=== PATIENT | female | born 1950 | race Hispanic/Latino ===

== ENCOUNTER → 2019-08-23 | Day surgery (SDC) | payer MEDICARE, OTHER ==
[2019-08-16 13:33] LABS: BASOPHILS # (AUTO) 0.1 (0.0-0.1); BASOPHILS % 1.1 % (0.0-1.0); EOSINOPHILS # (AUTO) 0.3 (0.0-0.4); EOSINOPHILS % 4.3 % (0.0-6.0); HEMATOCRIT 36.7 % (34.2-44.1); LYMPHOCYTES # (AUTO) 1.4 (1.0-3.2); LYMPHOCYTES % 22.5 % (18.0-39.1); MEAN CORPUSCULAR HEMOGLOBIN 31.6 pg (28-32); MEAN CORPUSCULAR HGB CONC 32.7 g/dL (31-35); MEAN CORPUSCULAR VOLUME 96.6 fL (81-99); MONOCYTES # (AUTO) 0.5 (0.2-0.8); MONOCYTES % 8.3 % (4.4-11.3); NEUTROPHILS % 63.3 % (38.7-80.0); PLATELET COUNT 294 x10e3/uL (140-360); RED CELL DISTRIBUTION WIDTH 13.2 % (11.7-14.4)
[2019-08-16 14:00] LABS: ALBUMIN 3.7 g/dL (3.5-5.0); ALBUMIN/GLOBULIN RATIO 0.9 (0.8-2.0); ANION GAP 14.1 mmol/L (8-16); CALCIUM 9.8 mg/dL (8.4-10.2); CREATININE, SERUM 1.9 mg/dL (0.57-1.11); POTASSIUM 5.1 mmol/L (3.5-5.1)
[2019-08-23] VITALS (9 sets, daily range): BP systolic 140–170; BP diastolic 66–99
[~2019-08-23] VITALS: Ht 165.1 cm; Wt 59.9 kg
[~2019-08-23] MED LIST: ALPRAZOLAM 0.5 MG TAB ONE; ASPIRIN 325 MG TAB ONE; ASPIRIN81 MG; CLOPIDOGREL75 MG PO; DIPHENHYDRAMINE HCL 25 MG CAP ONE; FENTANYL CITRATE/PF 100MCG/2 ML INJ ONE; HEPARIN SOD/SOD CHLORIDE 2,000 ML ONE; HUMALOG100 UNIT/1 SC; IOPAMIDOL 300MG/ML 100 ML INFUS..BTL IV ONE; LEVEMIR100 UNIT/1 SC; LIDOCAINE HCL 2% LOCAL 20 ML VIAL ONE; METOPROLOL SUCC25 MG; MIDAZOLAM HCL 2 MG/2 ML VIAL ONE; PRASUGREL 10 MG TAB ONE; SODIUM CHLORIDE 0.9% 1000ML 1,000 ML ONE; VERAPAMIL HCL 2.5 MG/ML 2 ML VIAL ONE
--- OUTSIDE RECORDS SUMMARY | 2019-08-23 09:02 | XMS REPORT | Summary of Care ---
Author Author YOMAIRA Manuel, PASTORA Organization Unknown Address Unknown Phone Unavailable Care Team Providers Care Therapeutic Program Worker Name Role Phone PASTORA BURNETTE M.D. Unavailable Unavailable TERESO ORNELAS MD, DHARA Unavailable Unavailable YOMAIRA BLACKWELL AR, PASTORA ALEXANDER Unavailable Unavailable Unavailable Unavailable Functional Status Name Dates Details Functional status health issues are not documented Status: Name Dates Details Cognitive status health issues are not documented Status: Problems Name Dates Details Extremity pain (729.5, M79.609) Status: Active Ankle injury (959.7, S99.919A) Status: Active Closed trimalleolar fracture of right ankle, initial encounter (824.6, S82.851A) Status: Active Post-traumatic osteoarthritis of right ankle (715.27, M19.171) Status: Active Contusion of left knee, initial encounter (924.11, S80.02XA) Status: Active Charcot's arthropathy (349.9, M14.60) Status: Active Charcot ankle, right (094.0, M14.671) Status: Active Fatigue (780.79, R53.83) Status: Active Vitamin D insufficiency (268.9, E55.9) Status: Active Vitamin B12 deficiency (266.2, E53.8) Status: Active Infection of left ear (382.9, H66.92) Status: Active Arm fracture, right (818.0, S42.301A) Status: Active Diabetes mellitus with diabetic neuropathy (250.60, E11.40) Status: Active Medications Name Dates Details Ranexa 500 MG Oral Tablet Extended Release 12 Hour TAKE 1 TABLET EVERY 12 HOURS. Active Aspirin 81 81 MG Oral Tablet Chewable * Refills: 0 Active Atorvastatin Calcium 10 MG Oral Tablet * Refills: 0 Active BusPIRone HCl - 5 MG Oral Tablet * Refills: 0 Active Isosorbide Mononitrate ER 30 MG Oral Tablet Extended Release 24 Hour * Refills: 0 Active Meclizine HCl - 12.5 MG Oral Tablet * Refills: 0 Active Metoprolol Tartrate 25 MG Oral Tablet TAKE 0.5 TABLET DAILY * Refills: 0 Active Nitroglycerin 0.4 MG Sublingual Tablet Sublingual * Refills: 0 Active Levemir FlexTouch 100 UNIT/ML Subcutaneous Solution Pen-injector 15 u SQ QHS * Refills: 0 BURNETTE M.D., PASTORA * Start : 06-Oct-2018 Active 5 x 3 ML Pen HumaLOG KwikPen 100 UNIT/ML Subcutaneous Solution Pen-injector inject 5 u before breakfast, 3 u before lunch, 3 u before dinner, and add 1:50 t arget 100 to meals tid ac. * Refills: 0 BURNETTE M.D., PASTORA * Start : 06-Oct-2018 Active 3 ML Pen Accu-Chek Liberty Plus In Vitro Strip use to check 4x/day: before meals and at bedtime * Refills: 0 BURNETTE M.D., PASTORA * Start : 06-Oct-2018 Active Allergies and Adverse Reactions Name Dates Details No Known Drug Allergies (Allergy) Status: Active Past Medical History Name Dates Details History of diabetes mellitus (V12.29, Z86.39) Status: Resolved History of hypertension (V12.59, Z86.79) Status: Resolved History of myocardial infarction (412, I25.2) Status: Resolved History of pancreatitis (V12.79, Z87.19) Status: Resolved Procedures Procedure Dates Details [QLH] CMP W/EGFR Date: 06-Oct-2018 [QL] CBC (INCLUDES DIFF/PLT) Date: 06-Oct-2018 [QL] TSH, 3RD GENERATION W/REFLEX TO FT4 Date: 06-Oct-2018 [QL] MICROALBUMIN, RANDOM URINE (W/CREATININE) Date: 06-Oct-2018 [QLH] VITAMIN D, 25-HYDROXY, LC/MS/MS Date: 06-Oct-2018 [QL] VITAMIN B12 Date: 06-Oct-2018 History of Hip Surgery Completed History of Ankle fracture repair Completed History of Cholecystectomy Completed Immunization Name Dates Details Immunizations not documented Family History Name Dates Details No pertinent family history (V49.89, Z78.9) Status: Active Name Dates Details No pertinent family history (V49.89, Z78.9) Status: Active Name Dates Details Family history of thyroid disease (V18.19, Z83.49) Status: Active Name Dates Details Family history of diabetes mellitus (V18.0, Z83.3) Status: Active Family history of cardiac disorder (V17.49, Z82.49) Status: Active Social History Name Dates Details Unknown if ever smoked Vital Signs Date Test Result Details :31 BP Systolic 106 mm[Hg] Status: Comments: Location: LUE; Position: Sitting BP Diastolic 61 mm[Hg] Status: Comments: Location: LUE; Position: Sitting Height 65 in Status: Weight 132.8 lb Status: Body Mass Index Calculated 22.1 kg/m2 Status: Body Surface Area Calculated 1.66 m2 Status: Heart Rate 81 /min Status: Results Date Description Value Details :31 [O] Hemoglobin A1c (in office) HEMOGLOBIN A1c 9.1 :32 Glucose (Point of Care In Office) Glucose POC [facility] :37 [QLH] MICROALBUMIN, RANDOM URINE (W/CREATININE) MICROALBUMIN, RANDOM URINE (W/CREATININE) Cancel Reason: Duplicate Order :37 [QLH] CBC (INCLUDES DIFF/PLT) CBC (INCLUDES DIFF/PLT) Cancel Reason: Duplicate Order :37 [QLH] CMP W/EGFR CMP Cancel Reason: Duplicate Order [id number] [QLH] VITAMIN B12 Vitamin B12 Level Cancel Reason: Duplicate Order :37 [QLH] TSH, 3RD GENERATION W/REFLEX TO FT4 TSH, 3RD GENERATION W/REFLEX TO FT4 Cancel Reason: Duplicate Order :37 [QLH] VITAMIN D, 25-HYDROXY, LC/MS/MS Vitamin D, 25-Hydroxy, Total* Cancel Reason: Duplicate Order :00 [QLH] CBC (INCLUDES DIFF/PLT) WBC 5.7 {K/CMM} Range: 3.7-10.4 RBC 3.86 {M/CMM} (Below low threshold) Range: 4.20-5.40 Hgb 11.8 g/dl (Below low threshold) Range: 12.0-16.0 Hct 36.1 % Range: 36.0-48.0 MCV 93.4 fL Range: 80.0-98.0 MCH 30.5 pg Range: 27.0-31.0 MCHC 32.7 g/dl Range: 32.0-36.0 RDW 16.3 % (Above high threshold) Range: 11.5-14.5 Platelet 354 {K/CMM} Range: 133-450 Mean Platelet Volume 10.8 fL (Above high threshold) Range: 7.4-10.4 :00 [FORMERLY [facility], [facility]–1983] Differential Segmented Neutrophils 67.5 % Range: 45.0-75.0 Monocytes 7.5 % Range: 2.0-12.0 Lymphocytes 22.2 % Range: 20.0-40.0 Eosinophils 1.9 % Range: 0.0-4.0 Basophils 0.9 % Range: 0.0-1.0 Segs-Bands # 3.9 {K/CMM} Range: 1.5-8.1 Lymphocytes # 1.3 {K/CMM} Range: 1.0-5.5 Monocytes # 0.4 {K/CMM} Range: 0.0-0.8 Eosinophils # 0.1 {K/CMM} Range: 0.0-0.5 Basophils # 0.1 {K/CMM} Range: 0.0-0.2 :00 [FORMERLY [facility], 1928–1983] MICROALBUMIN, RANDOM URINE (W/CREATININE) Urine Microalbumin 154.0 mg/L U Creatinine 67.20 mg/dl Comments: No established reference ranges. Urine Microalbuming Creatinine Ratio 229.2 {MCG/MG_CRE} (Above high threshold) Range: <=30.0 :00 [FORMERLY [facility], [facility]–1983] VITAMIN D, 25-HYDROXY, LC/MS/MS Vitamin D, 25-OH, Total 27.3 ng/ml (Below low threshold) Range: 30.0-100.0 Comments: Reference range is based on recommendations in the EndocrineSociety Clinical Practice Guideline (J Clin Endocrinol [id number];96:[id number]) :00 [FORMERLY [facility], [facility]–1983] VITAMIN B12 Vitamin B12 Level 1542 pg/ml (Above high threshold) Range: 254-1320 :00 [FORM[facility]LY [facility], [facility]] TSH, 3RD GENERATION W/REFLEX TO FT4 TSH 3.470 {uIU/ml} Range: 0.360-3.740 [id number] [FORM[facility]LY [facility], [facility]] CMP W/EGFR Sodium Level 128 {mEq/l} (Below low threshold) Range: 135-145 Potassium Level 5.9 {mEq/l} (Above high threshold) Range: 3.5-5.1 Chloride Level 91 {mEq/l} (Below low threshold) Range: 95-109 Carbon Dioxide 24 {mEq/l} Range: 24-32 AGAP 18.9 {mEq/l} Range: 10.0-20.0 Glucose Lvl 601 mg/dl (Abnormal alert) Range: 70-99 Comments: Critical Result(s) called to Percy Brice at 10/07/2018 16:39 byCT. Read back OK.Adult reference range values reflect the clinical guidelinesof the [place] [employer]. Creatinine Lvl 2.30 mg/dl (Above high threshold) Range: 0.50-1.40 Blood Urea Nitrogen 55 mg/dl (Above high threshold) Range: 7-22 BUN/Creatinine Ratio 24 Range: 6-25 Total Protein 7.6 g/dl Range: 6.4-8.4 Albumin Lvl 3.7 g/dl Range: 3.5-5.0 Globulin 3.9 g/dl Range: 2.7-4.2 A/G Ratio 0.9 Range: 0.7-1.6 Calcium Level Total 9.6 mg/dl Range: 8.5-10.5 ALT 25 u/l Range: 0-65 AST 31 u/l Range: 0-37 Alk Phos 162 u/l (Above high threshold) Range: 39-136 Bili Total 0.6 mg/dl Range: 0.2-1.3 eGFR 21 {ML/MIN/1.7} Comments: The eGFR is calculated using the CKD-EPI formula. In most young, healthyindividuals the eGFR will be >90 mL/min/1.73m2. The eGFR declines with age. AneGFR of 60-89 may be normal in some populations, particularly the elderly, forwhom the CKD-EPI formula has not been extensively validated. Use of the eGFR isnot recommended in the following populations:Individuals with unstable creatinine concentrations, including patients and those with serious co-morbid conditions.Patients with extremes in muscle mass or diet.The data above are obtained from the National Kidney Disease Education Program(NKDEP) which additionally recommends that when the eGFR is used in patientswith extremes of body mass index for purposes of drug dosing, the eGFR shouldbe multiplied by the estimated BMI. Plan of Care Name Dates Details Planned Observations Planned Goals not documented Planned Encounters Appointment; SAKINA MATA RD On: 04-Nov-2018 10:00 Instructions Name Dates Details Instructions not documented Encounters Appointment; ANTHONY SANCHEZ M.D. Encounter Diagnosis: Problem not documented On: 04-Nov-2016 13:15 Appointment; ANTHONY SANCHEZ M.D. Encounter Diagnosis: Problem not documented On: 27-Jan-2017 9:45 Appointment; ANTHONY SANCHEZ M.D. Encounter Diagnosis: Problem not documented On: 02-Apr-2017 9:00 Appointment; ANTHONY SANCHEZ M.D. Encounter Diagnosis: Problem not documented On: 08-Apr-2017 13:00 Appointment; ANTHONY SANCHEZ M.D. Encounter Diagnosis: Problem not documented On: 05-May-2017 8:30 Appointment; BEAR JUAN M.D. Encounter Diagnosis: Problem not documented On: 03-Jun-2017 9:15 Appointment; BEAR JUAN M.D. Encounter Diagnosis: Problem not documented On: 17-Jun-2017 8:45 Appointment; BEAR JUAN M.D. Encounter Diagnosis: Problem not documented On: 01-Jul-2017 9:15 Appointment; BEAR JUAN M.D. Encounter Diagnosis: Problem not documented On: 08-Jul-2017 13:15 Appointment; BEAR JUAN M.D. Encounter Diagnosis: Problem not documented On: 09-Sep-2017 13:45 Appointment; BEAR JUAN M.D. Encounter Diagnosis: Problem not documented On: 21-Oct-2017 9:00 Appointment; BEAR JUAN M.D. Encounter Diagnosis: Problem not documented On: 21-Oct-2017 13:15 Appointment; PASTORA BURNETTE M.D. Encounter Diagnosis: Problem not documented On: 27-Oct-2017 15:00 Appointment; PASTORA BURNETTE M.D. Encounter Diagnosis: Problem not documented On: 09-Nov-2017 13:00 Appointment; BEAR JUAN M.D. Encounter Diagnosis: Problem not documented On: 16-Dec-2017 14:30 Appointment; DANIEL, DEVICE Encounter Diagnosis: Problem not documented On: 02-Jun-2018 10:45 Appointment; PASTORA BURNETTE M.D. Encounter Diagnosis: Problem not documented On: 06-Oct-2018 13:00 Appointment; PASTORA BURNETTE M.D. Encounter Diagnosis: Problem not documented On: 20-Oct-2018 10:00
--- OUTSIDE RECORDS SUMMARY | 2019-08-23 09:02 | XMS REPORT ---
Author Author [facility] Address Unknown Phone Unavailable Care Team Providers Care Rn Shift Mgr Name Role Phone Unavailable Unavailable Payers Payer Name Policy Type Policy Number Effective Date Expiration Date Problems This patient has no known problems. Allergies, Adverse Reactions, Alerts Allergy Name Allergy Type Status Severity Reaction(s) Onset Date Inactive Date Treating Clinician Comments No Known Allergies DA Active U 2018-09-12 00:00:00 No Known Allergies DA Active U 2016-10-20 00:00:00 Medications This patient has no known medications.
--- NOTE | 2019-08-23 12:04 | NUR ---
1204 pt Received pt to room #9,bedside report received from Tyson MCKEON. Alert oriented and appropriate, PERRLA, respirations even and unlabored to room air. Pulses x4 extremities Pedal pulses PT/DP X4 Cap fill brisk < 3 sec. Rt pedal tr band intact for decrease at 1400p and dc home 1500pm. Skin warm and dry integrity appears D/i. IV 22g to left hand, presents healthy w/o s/s of infiltration or complaint. Abdomen soft and supple. pt offered toileting, denies need to urinate or defecate. No personal affects with patient. Family at bedside. Pt and family verbalizes understanding of POC. Currently w/o complaint of pain or need. ds/en
--- NOTE | 2019-08-23 13:31 | Operative Report ---
DATE OF PROCEDURE: 08/23/2019 SURGEON: Ruddy Farias MD INDICATIONS: Peripheral arterial disease and claudication. PROCEDURES PERFORMED: 1. Ultrasound-guided access in the right anterior tibial artery. 2. Atherectomy and angioplasty of the right anterior tibial artery. 3. Deployment of right ankle TR band. COMPLICATIONS: None. RECOMMENDATIONS: Staged intervention of the left anterior tibial artery via pedal access. DESCRIPTION OF PROCEDURE: Access obtained in the right dorsalis pedis artery using ultrasound guidance. A 6-Estonian sheath was placed. Heparin 6000 units was administered, 90% distal right anterior tibial artery stenosis was noted. Orbital atherectomy using a 1.25 mm CSI device was performed. Balloon angioplasty, 2.5 mm balloon, excellent single-vessel runoff to the right foot. Right ankle sheath was removed. TR band applied. The patient discharged home the same day. Ruddy Farias MD KSPercy/MODL /[id number]
--- NOTE | 2019-08-23 14:00 | NUR ---
1400p Pedal Compression removal: Initial Cuff volume 12 cc 1400 -2 cc Removed No hematoma/bleeding noted with normal neurovascular function. 1415 -5cc Removed No hematoma/ bleeding noted with normal neurovascular function. 1430 -5cc Removed No hematoma/bleeding noted with normal neurovascular function. cc Air removal completed. Stasis achieved sterile 2x2,Tegaderm, Coban dressing No hematoma, bleeding noted with normal neurovascular function. Pt instructed on POC. Ds/Rn
--- NOTE | 2019-08-23 15:00 | NUR ---
1500 Pt meets DC criteria. Site assessed for s/s of complication and presence of hematoma. Skin warm, dry, no discolor, and pulses present. IV removed from left hand. Distal tip appears intact. VS WNL. Pt denies pain, sob, or need at this time. Family at bedside. Review of discharge paperwork and follow up instructions. verbalized understanding. Pt to wheelchair and transported to front of hospital. Transferred to private vehicle under own strength w/o incident with DC paperwork in hand. - ds/rn
== END | disposition home or self-care (01) ==
LOC: CATH LAB 08:58
PROVIDERS: ATTEND Internal Medicine Interventional Cardiology
DX: I70.211 Atherosclerosis of native arteries of extremities with intermittent claudication, right leg (principal); I25.118 Atherosclerotic heart disease of native coronary artery with other forms of angina pectoris; I25.2 Old myocardial infarction; I11.0 Hypertensive heart disease with heart failure; I50.20 Unspecified systolic (congestive) heart failure; E11.8 Type 2 diabetes mellitus with unspecified complications; Z01.812 Encounter for preprocedural laboratory examination; Z79.02 Long term (current) use of antithrombotics/antiplatelets; Z95.810 Presence of automatic (implantable) cardiac defibrillator; Z82.49 Family history of ischemic heart disease and other diseases of the circulatory system
CPT/HCPCS: 36415; 37229; 75710; 76937; 80053; 85025; C1724; C1769; J2001; J2250; J3010; J7030; Q9967; 36247; 99152; 99153

== ENCOUNTER 2020-01-17 14:24 | Inpatient (IN) | payer MEDICARE, OTHER ==
[~2020-01-17] VITALS: Ht 165.1 cm; Wt 60.4 kg
[~2020-01-17 14:24] MED LIST changes: -ALPRAZOLAM 0.5 MG TAB ONE; -ASPIRIN 325 MG TAB ONE; -DIPHENHYDRAMINE HCL 25 MG CAP ONE; -FENTANYL CITRATE/PF 100MCG/2 ML INJ ONE; -HEPARIN SOD/SOD CHLORIDE 2,000 ML ONE; -IOPAMIDOL 300MG/ML 100 ML INFUS..BTL IV ONE; -LIDOCAINE HCL 2% LOCAL 20 ML VIAL ONE; -MIDAZOLAM HCL 2 MG/2 ML VIAL ONE; -PRASUGREL 10 MG TAB ONE; -SODIUM CHLORIDE 0.9% 1000ML 1,000 ML ONE; -VERAPAMIL HCL 2.5 MG/ML 2 ML VIAL ONE
--- OUTSIDE RECORDS SUMMARY | 2020-01-17 14:27 | XMS REPORT | Summary of Care ---
Author Author [facility] - Health Organization [facility] - Health Address Unknown Phone Unavailable Care Team Providers Care Data Assistant Name Role Phone Pcp, Patient Does Not Have A PCP [phone] Encounter Details Care Team Description Date Type Department Doctor Unassigned, [address] [place] [address] 11/03/2019 Orders Only [facility] [address] [place] [address] Allergies No Known Allergiesdocumented as of this encounter (statuses as of 12/20/2019) Medications End Date Status Medication Sig Dispensed Refills Start Date Active clopidogrel (PLAVIX) 75 Take 75 mg by 0 mg tablet mouth daily. Active metoprolol succinate XL Take 25 mg by 0 25 mg 24 hr tablet mouth daily. Active insulin aspart U-100 100 inject 8 0 unit/mL (3 mL) injection Units under the skin 3 (three) times daily before meals. Active insulin detemir U-100 100 inject 9 0 unit/mL injection Units under the skin at bedtime. Active aspirin 81 mg chewable Take 1 tablet 30 tablet 0 1 tabletIndications: Chest by mouth 9 pain, unspecified type daily. Active atorvastatin 40 mg Take 1 tablet 30 tablet 0 08/06 tabletIndications: Chest by mouth at 9 pain, unspecified type bedtime. Active traMADol 50 mg Take 1 tablet 20 tablet 0 tabletIndications: Chest by mouth 9 pain, unspecified type, every 6 (six) S/P drug eluting coronary hours as stent placement needed for Pain (scale 7-10). documented as of this encounter (statuses as of 12/20/2019) Active Problems Problem Noted Date S/P drug eluting coronary stent placement 08/05/2019 Overview: Synergy 3.0 x 12 mm KARLEE to mid LAD by Bernard Farias on 08/05/19 documented as of this encounter (statuses as of 12/20/2019) Social History Date Tobacco Use Types Packs/Day Years Used Never Assessed Sex Assigned at Date Recorded Not on file Industry Job Start Date Occupation Not on file Not on file Not on file Travel End Travel History Travel Start No recent travel history available. documented as of this encounter Last Filed Vital Signs Not on filedocumented in this encounter Plan of Treatment Health Maintenance Due Date Last Done Comments HEPATITIS C (HCV) SCREEN 1950 DTaP,Tdap,and Td Vaccines 1962 (1 - Tdap) Breast Cancer Screening 1991 (MAMMOGRAM) COLONOSCOPY 2001 Zoster Recombinant 2001 Vaccine (SHINGRIX) (1 of 2) Medicare Wellness Visit 2016 Osteoporosis Screening 2016 PNEUMOCOCCAL VACCINES 65+ 2016 (1 of 2 - PCV13) INFLUENZA VACCINE (#1) 2019 documented as of this encounter Procedures Comments Procedure Name Priority Date/Time Associated Diag nosis AUTHORIZATION FOR RELEASE Routine 11/03/2019 OF PHI 12:01 AM EMPLOYMENT TRAINER documented in this encounter Results Not on filedocumented in this encounter Insurance Type Payer Benefit Subscriber ID Effective Phone Address Plan / Dates Group Medicare Adv O [facility] [id number] 2019-P MANAGED MEDICARE HEALTHCARE resent DUAL COMPLETE O Medicaid [facility] MEDICAID xxxxxxxxx 2019- [phone] P O [facility] Present [id number] Medicaid [facility] xxxxxxxxx 9-P PLAN - MANAGED MEDICAID STAR PLUS resent documented as of this encounter
--- NOTE | 2020-01-17 15:20 | NUR ---
Dr Gama in to exam patient, pt checked blood sugar and the results were 408, Dr Gama stated at the nurses station that pt too 10 units of humalog in the room.
--- NOTE | 2020-01-17 15:30 | NUR ---
us at bedside.
--- NOTE | 2020-01-17 16:10 | NUR ---
pt refused IV, pt has very limited venous access, 4 attempts with 22g unsuccessful. blood obtain and sent to lab.
--- NOTE | 2020-01-17 16:10 | Diagnostic Imaging Report ---
EXAM: US LOW EXT ARTERIES AVILEZ UNI DATE: 01/17/2020 3:29 PM INDICATION: Diabetic ulcer/infection COMPARISON: None FINDINGS: Ultrasound evaluation of the right lower extremity arterial system was performed with conner scale, color Doppler, and spectral interrogation. The right common femoral artery, profunda femoris, superficial femoral artery, and popliteal artery are patent. Triphasic waveforms are noted to the level of the proximal superficial femoral artery. Biphasic waveforms are noted more peripherally. No significant velocity gradient is identified to suggest significant focal stenosis. The anterior tibial artery is patent to the level of the ankle with biphasic waveforms. The right posterior tibial and peroneal arteries were not evaluated on this limited arterial Doppler. IMPRESSION: Unremarkable right lower extremity Doppler evaluation without evidence for significant focal stenosis. Signed by: Dr. Aubrey Marin MD on 01/17/2020 4:06 PM
--- NOTE | 2020-01-17 16:20 | NUR ---
blood suger 237
--- NOTE | 2020-01-17 16:49 | Diagnostic Imaging Report ---
EXAM: FOOT 3 VIEW RT - HOPD DATE: 01/17/2020 3:50 PM INDICATION: Diabetic foot infection COMPARISON: None FINDINGS/IMPRESSION: Partially visualized fixation hardware noted within the distal right fibula/tibia. Bony mineralization is diffusely decreased, which limits evaluation. No radiographically evident acute fracture or dislocation is appreciated. No gross lytic or blastic abnormality is identified. No radiographically evident osseous destructive process is identified. If there is clinical concern for osteomyelitis, consider further evaluation with dedicated MRI examination. Chronic changes noted within the midfoot. There are degenerative changes at the first MTP. Vascular calcifications are noted. The surrounding soft tissues are otherwise unremarkable without evidence for radiopaque foreign body. Signed by: Dr. Aubrey Marin MD on 01/17/2020 4:45 PM
--- NOTE | 2020-01-17 18:00 | NUR ---
PT INSTRUCTED NOT TO TAKE HER HOME MEDS, FAMILY VERBALIZED UNDERSTANDING
--- NOTE | 2020-01-17 18:22 | NUR ---
blood sugar 33, Dr Gama aware, pt given orange juice. Addendum: 01/17/20 at 1944 by MILANA PT ALERT AND AWARE OF HER SURROUNDING, WHEN SPOKEN TO. OTHERWISE PT RESTING WITH EYES CLOSE BUT FOLLOWS ABHAY
--- NOTE | 2020-01-17 18:28 | NUR ---
pt given pudding pac. pt agreed to left this nurse attempt for IV access
--- NOTE | 2020-01-17 18:45 | NUR ---
blood sugar [address] Gama
[2020-01-17] MEDS ORDERED: SODIUM CHLORIDE FLUSH 10 ML SYR INJ PRN (19:00)
--- NOTE | 2020-01-17 19:00 | NUR ---
PT COMPLETED MEAL WITH FAMILY AT BEDSIDE. PT ALERT AND ORIENTED AT THIS TIME
[2020-01-17] MEDS ORDERED: VANCOMYCIN 1GM/NS 250 ML 250 ML IV ONE (19:15)
--- NOTE | 2020-01-17 19:45 | NUR ---
UKTG=[id number]. MD INFORMED... AWAITING EMS ARRIVAL FOR TRANSPORT TO [facility] RM 290. PT RESTING QUIETLY WITH EYES CLOSED(WEARING MASK). SPOUSE AT BEDSIDE.
--- NOTE | 2020-01-17 20:11 | NUR ---
REPORT TO EMS BY
[2020-01-17 21:00] VITALS: BP 135/58
[2020-01-17] MEDS: ONDANSETRON HCL INJ 2MG/ML 2ML 2 MG/ML VIAL IV PRN (21:20)
[2020-01-17] MEDS: MORPHINE SULFATE INJ 4 MG/ML INJ 1ML IV PRN (21:20)
[2020-01-17 23:53] VITALS: BP 135/58
[2020-01-18] VITALS (9 sets, daily range): BP systolic 109–151; BP diastolic 56–66
[2020-01-18] MEDS: AMPICILLIN SOD/SULBACTAM 3GM 100 ML IV SCH ×2 (00:49→12:47)
[2020-01-18] MEDS: MORPHINE SULFATE INJ 4 MG/ML INJ 1ML IV PRN ×3 (04:18→20:01)
[2020-01-18] MEDS ORDERED: VANCOMYCIN 1GM/NS 250 ML 250 ML IV SCH (05:30)
[2020-01-18 05:55] LABS: BASOPHILS % 0.6 % (0.0-1.0); EOSINOPHILS # (AUTO) 0.3 (0.0-0.4); EOSINOPHILS % 5.5 % (0.0-6.0); HEMATOCRIT 28.1 % (34.2-44.1); HEMOGLOBIN 9.1 g/dL (12.0-16.0); LYMPHOCYTES # (AUTO) 1.3 (1.0-3.2); LYMPHOCYTES % 27.3 % (18.0-39.1); MEAN CORPUSCULAR HEMOGLOBIN 30.8 pg (28-32); MEAN CORPUSCULAR HGB CONC 32.4 g/dL (31-35); MEAN CORPUSCULAR VOLUME 95.3 fL (81-99); MONOCYTES # (AUTO) 0.5 (0.2-0.8); MONOCYTES % 10.8 % (4.4-11.3); NEUTROPHILS # (AUTO) 2.7 (2.1-6.9); NEUTROPHILS % 55.6 % (38.7-80.0); PLATELET COUNT 304 x10e3/uL (140-360); RED BLOOD COUNT 2.95 x10e6/uL (3.6-5.1); RED CELL DISTRIBUTION WIDTH 14.2 % (11.7-14.4)
[2020-01-18 06:12] LABS: INR 0.89; PROTHROMBIN TIME 12.6 seconds (11.9-14.5)
[2020-01-18 06:19] LABS: ALBUMIN/GLOBULIN RATIO 0.9 (0.8-2.0); ANION GAP 12.7 mmol/L (8-16); CALCIUM 9.3 mg/dL (8.4-10.2); CREATININE, SERUM 1.5 mg/dL (0.57-1.11); POTASSIUM 4.7 mmol/L (3.5-5.1)
--- NOTE | 2020-01-18 06:44 | NUR ---
Dr. Farias, called for consult pad.
--- NOTE | 2020-01-18 06:46 | NUR ---
Dr. Hua office called for gangrene
--- NOTE | 2020-01-18 06:48 | NUR ---
Dr. Vale office called for consult
--- NOTE | 2020-01-18 07:00 | NUR ---
Received bedside shift report from off going nurse. Patient in stable condition, no s/s of distress noted. Telemetry applied and working. Bed alarm applied and working. bed in lowest position and locked. Call light within reach. All personal items within reach.
[2020-01-18] MEDS: ASPIRIN 81 MG CHEW TAB PO SCH (08:39)
[2020-01-18] MEDS: CLOPIDOGREL BISULFATE 75 MG TAB PO SCH (08:40)
[2020-01-18] MEDS: METOPROLOL SUCCINATE 25 MG TAB XL PO SCH ×2 (08:40→16:42)
--- NOTE | 2020-01-18 09:15 | NUR ---
Pt. expressed no spiritual or emotional concerns at this time. Shirt Presser provided hospitality and information on how to reach cloth tearer, if needed. No need to follow at this time. RYAN ANAYA Shirt Presser Spiritual Care Department O: [phone]
[2020-01-18] MEDS ORDERED: DIPHENHYDRAMINE HCL 25 MG CAP PO PRN (11:00)
[2020-01-18] MEDS ORDERED: SODIUM CHLORIDE 0.9% 250ML 250 ML ONE (12:56)
[2020-01-18] MEDS: ACETAMINOPHEN 325 MG TAB PO PRN (14:17)
--- NOTE | 2020-01-18 14:30 | NUR ---
aware patient has a pacemaker. Per "cancel MRI"
[2020-01-18] MEDS ORDERED: DEXTROSE 50% SYRINGE 50 ML IV PRN (16:15)
--- NOTE | 2020-01-18 16:45 | NUR ---
Paged DR. Costello due to the patient having a blood sugar of 443 received orders for a sliding scale.
[2020-01-18] MEDS: COLLAGENASE 5 GM TUBE TOP SCH (16:49)
--- NOTE | 2020-01-18 17:00 | NUR ---
Blood sugar rechecked 274.
[2020-01-18] MEDS: INSULIN LISPRO 100 UNIT/1 ML 3ML VIAL SQ SCH ×2 (17:13→20:19)
[2020-01-18] MEDS: CEFTRIAXONE SOD 2 GM/NS 100 ML 100 ML IV SCH (17:20)
--- NOTE | 2020-01-18 18:27 | Consultation ---
DATE OF CONSULTATION: CHIEF COMPLAINT AND HISTORY OF THE CHIEF COMPLAINT: Ms. Brock is a most pleasant 69-year-old female, who has complaints of an infected right hallux for the past 2 months. She states that she has a history of diabetes, pacemaker, and has had stents both in her legs and other areas that she is not certain where. Dr. Ruddy Farias is her evaporative cooler installer. The patient is admitted for IV antibiotics and workup of the infected ulcer on the right foot. She states that she normally sees Dr. Isaac on an outpatient basis. REVIEW OF SYSTEMS: Otherwise negative. PREVIOUS MEDICAL HISTORY: Includes the aforementioned coronary artery disease, distal peripheral neuropathy, peripheral vascular disease, diabetes, and ulceration of the right hallux with distal digital gangrenous changes. Dry in nature. PHYSICAL EXAMINATION: Physical evaluation of lower extremity: VASCULAR STATUS: The patient has nonpalpable pedal pulses in either dorsalis pedis or posterior tibial. Skin temperature is, however, warm. Capillary refill is sluggish. NEUROLOGICAL: The patient has a loss of protective sensation as evidenced by [place] monofilament testing. DERMATOLOGICAL: The right hallux has a distal ulceration with a dry blackened cap. MUSCULOSKELETAL: No obvious osteomyelitis is present based on current radiographs. MRI is recommended to confirm. DIAGNOSIS: Chronic peripheral arterial disease with ulceration distal tip of the right hallux in a diabetic patient with coronary artery disease, currently undergoing vascular treatments by Dr. Ruddy Farias. RECOMMENDATIONS: At this point is for further vascular intervention if required. I will ask Dr. Farias to see this patient. Local wound care, which will include Santyl wet-to-dry dressings and debridements as required pending outcome of the MRI and further vascular treatments. MARIE Culver/JOSE MIGUEL /[id number]
--- NOTE | 2020-01-18 18:53 | NUR ---
Bedside shift report and rounding completed with oncoming nurse. Patient in stable condition, no s/s of distress noted. No pain voiced. Telemetry applied and working.Bed alarm applied and working. Bed in lowest position and locked. Call light within reach.
--- NOTE | 2020-01-18 18:57 | Consultation ---
DATE OF CONSULTATION: HISTORY OF PRESENT ILLNESS: Ms. Brock is a 69-year-old female with history of diabetes mellitus, history of hypertension comes in with two month history of infection, redness and swelling of her toe. The patient denies any history of trauma. She does have history of diabetes mellitus, neuropathy, atherosclerosis disease. PAST SURGICAL HISTORY: Umbilical hernia repair. ALLERGIES: NKA. SOCIAL HISTORY: There is no smoking, drug abuse or alcohol abuse. FAMILY HISTORY: Hypertension and diabetes. REVIEW OF SYSTEMS: HEENT: Negative. PULMONARY: Negative. CARDIAC: Negative. The patient is being admitted. LABORATORY DATA: Showed a white count 4.9, hemoglobin 9.1. Her sodium 136, potassium 4.7, creatinine 1.5. PHYSICAL EXAMINATION: GENERAL: She is currently alert, oriented, does not seem to be in acute distress. VITAL SIGNS: Stable, currently afebrile. HEENT: She is not icteric. NECK: Supple. CHEST: Clear. HEART: S1 and S2. No S3, S4, or murmurs. ABDOMEN: Soft. EXTREMITIES: The foot there is erythema and edema mainly the first and second toe. Pulses weak. IMPRESSION: 1. Cellulitis of the foot concerning for osteomyelitis. 2. Chronic kidney disease. 3. Atherosclerotic disease. The patient on vancomycin and cefepime, adjust for kidney function. Obtain an MRI of the foot. Podiatry consulted. Cardiology was consulted. Check CBC. Recheck Chem panel. We will follow. MD CARLOS Vuong/JOSE MIGUEL /[id number]
--- NOTE | 2020-01-18 19:18 | NUR ---
Received bedside report from day nurse. Patient awake and resting in bed, no s/s of distress at this time. Bed locked and in low position, side rails up, alarm on. Call light placed within reach. Patient instructed to call for assistance, verbalized understanding. All safety measures in place. Will continue to monitor.
[2020-01-18] MEDS: ONDANSETRON HCL INJ 2MG/ML 2ML 2 MG/ML VIAL IV PRN (20:00)
[2020-01-19] VITALS (9 sets, daily range): BP systolic 132–160; BP diastolic 53–91
--- NOTE | 2020-01-19 06:59 | NUR ---
Bedside report given to day nurse. Patient resting in bed, no s/s of distress at this time. All safety measures in place.
--- NOTE | 2020-01-19 07:00 | NUR ---
Received bedside shift report from off going nurse. Patient in stable condition, no s/s of distress noted. Telemetry applied and working. Bed alarm applied and working. Bed in lowest position and locked. Call light within reach. All personal items within reach.
[2020-01-19] MEDS: INSULIN LISPRO 100 UNIT/1 ML 3ML VIAL SQ SCH ×4 (08:30→20:55)
[2020-01-19] MEDS: METOPROLOL SUCCINATE 25 MG TAB XL PO SCH ×2 (08:56→16:30)
[2020-01-19] MEDS: CLOPIDOGREL BISULFATE 75 MG TAB PO SCH (08:56)
[2020-01-19] MEDS: ASPIRIN 81 MG CHEW TAB PO SCH (08:56)
[2020-01-19] MEDS: VANCOMYCIN 1GM/NS 250 ML 250 ML IV SCH (08:56)
[2020-01-19] MEDS: MORPHINE SULFATE INJ 4 MG/ML INJ 1ML IV PRN ×3 (10:20→20:55)
[2020-01-19] MEDS: ONDANSETRON HCL INJ 2MG/ML 2ML 2 MG/ML VIAL IV PRN ×3 (10:20→20:55)
[2020-01-19] MEDS: COLLAGENASE 5 GM TUBE TOP SCH (10:27)
--- NOTE | 2020-01-19 12:00 | Progress Note ---
DATE: SUBJECTIVE: The patient is seen and evaluated. Available labs and notes reviewed. REVIEW OF SYSTEMS: Some pain of right first toe wound. Otherwise, no nausea, no vomiting, no fever, no chills, no chest pain, no shortness of breath. The patient is concerned about amputation of the toe and she wants to try antibiotics at this point. PHYSICAL EXAMINATION: VITAL SIGNS: Temperature is 97.2, pulse is 79, respirations 16, blood pressure 160/72. GENERAL: Alert and oriented, comfortable in bed. CV: S1, S2. CHEST: Equal expansion. Clear to auscultation. No acute distress. ABDOMEN: Soft and nontender. No distention. HEENT: Moist. No pallor. No JVD. EXTREMITIES: Right first toe wound tender to touch, seems to be ischemic. No drainage noted. MEDICATIONS: Medication list reviewed. The patient is on vancomycin IV and Rocephin. LABORATORY STUDIES: No new CBC or BMP available. MICROBIOLOGY: No microbiology studies available. RADIOLOGY STUDIES: X-ray of the right foot, 3 views, no radiographically evident acute fracture or dislocation. Unremarkable without evidence of radio-opaque foreign body. Also, radiographically, no evidence of osseous destruction or destructive process. Echocardiogram is pending. ASSESSMENT AND PLAN: 1. Cellulitis of the right foot. 2. Right first toe wound. 3. Chronic kidney disease. 4. Atherosclerotic disease. 5. Unable to do MRI secondary to the patient has a pacemaker, discussed with Dr. Vale. The patient has a GFR of 35. We will do CT of the foot without the contrast. We will continue with Rocephin and vancomycin at this point and pending vascular workup, hopefully, echocardiogram is in progress. Further management of this patient is based on daily findings on laboratory and physical examination. Discussed with Dr. Vale in details. Discussed with the nurse. Please refer to chart for more information. Dictated by Abdi Marrero PA-C (Al) Hao Vale MD /MODL /[id number]
--- NOTE | 2020-01-19 15:00 | Diagnostic Imaging Report ---
EXAM: CT right foot WITHOUT contrast INDICATION: Diabetic foot ulcer. Foot pain. Gangrene. COMPARISON: 01/17/2020 TECHNIQUE: Right foot was scanned utilizing a multidetector helical scanner without administration of IV contrast. Coronal and sagittal reformations were obtained. Routine protocol was performed. IV CONTRAST: None ORAL CONTRAST: Water COMPLICATIONS: None RADIATION DOSE: Total DLP: 136 mGy*cm Estimated effective dose: (DLP x 0.015 x size factor) mSv CTDIvol has been reviewed. It is below the limits set by the Radiation Protocol Committee (RPC). Dose modulation, iterative reconstruction, and/or weight based adjustment of the mA/kV was utilized to reduce the radiation dose to as low as reasonably achievable. FINDINGS: Metallic surgical hardware in the distal tibia and fibula appears to be intact. Scattered degenerative change most pronounced in the mid/hindfoot region with bony sclerosis, subchondral cystic change and bony fragmentation. No acute fracture or evidence of avascular process. The anterior talus is tilted in an inferior and medial direction with respect to the cuneiform bones and the ventricular bone. Small posterior calcaneal bone spur. Diffuse muscle atrophy. Scattered vascular calcification. Diffuse osteopenia. No definite osseous erosion is seen to suggest osteomyelitis Impression: Diffuse osteopenia with postsurgical/chronic appearing posttraumatic and associated scattered chronic appearing degenerative change as described above. No definite osseous erosion is seen to suggest osteomyelitis Signed by: Dr. Chris Fagan M.D. on 01/19/2020 2:56 PM
[2020-01-19] MEDS: DIPHENHYDRAMINE HCL 25 MG CAP PO PRN ×2 (16:11→21:48)
[2020-01-19] MEDS: CEFTRIAXONE SOD 2 GM/NS 100 ML 100 ML IV SCH (16:32)
--- NOTE | 2020-01-19 19:00 | NUR ---
Received bedside report from day nurse. Patient awake and sitting up in bed, no s/s of distress at this time. Bed locked and in low position, side rails up, call light placed within reach. All safety measures in place. Will continue to monitor.
--- NOTE | 2020-01-19 19:11 | Progress Note ---
DATE: The patient is seen today in followup consultation. She is feeling much better. She is on IV antibiotics as per Dr. Vale. She has reduction in redness and swelling from the right lower extremity. The wound on the distal hallux right and to a lesser extent the second digit right has a dry gangrenous scab. Santyl wet-to-dry dressings were previously ordered. These are currently not on the wound, but we will ensure that they go on tonight for enzymatic debridement and softening tomorrow bedside debridement sharply to facilitate healing and the patient otherwise has had a CT scan, which fails to demonstrate any signs of osteomyelitis. Radiographs are negative as well. Once Dr. Vale has determined the appropriate course of antibiotics, she is fine for discharge after debridement tomorrow. Follow up with me within one week post debridement outpatient in the office. MARIE Culver/JOSE MIGUEL /[id number]
[2020-01-20] VITALS (7 sets, daily range): BP systolic 132–165; BP diastolic 44–79
--- NOTE | 2020-01-20 01:57 | NUR ---
PT SWEATY BUT RESPONSIVE VERBALLY. ACCUCHECK 29 AT 0115. PT GIVEN OJ WITH SUGAR PACKETS AND GRAHGM CRACKERS. ACCUCHECK UP TO 43 AT 0130. CONTINUE TO GIVE SANDWICH AND COLA WITH SUGAR TO GET PT ACCUCHECK UP . ACCUCHECK 63 AT 0157.CONTINUE TO ENCOURAGE PT TO EAT SANDWICH AND DRINK JUICE AT BEDSIDE. WILL CONTINUE TO MONITOR SUGAR. WILL INFORM DR PAGAN THIS AM.
--- NOTE | 2020-01-20 07:19 | NUR ---
PATIENT IN BED RESTING WITH NO S/S OF DISTRESS. BRUISES TO BOTH ARMS. RIGHT GREAT TOE WITH DRESSING DRY AND INTACT. BED IN LOWER POSITION, CALL LIGHT AT REACH.
[2020-01-20] MEDS: INSULIN LISPRO 100 UNIT/1 ML 3ML VIAL SQ SCH ×3 (07:30→16:30)
[2020-01-20] MEDS: DIPHENHYDRAMINE HCL 25 MG CAP PO PRN (08:50)
[2020-01-20] MEDS: VANCOMYCIN 1GM/NS 250 ML 250 ML IV SCH (09:30)
[2020-01-20] MEDS: METOPROLOL SUCCINATE 25 MG TAB XL PO SCH ×2 (09:30→17:08)
--- NOTE | 2020-01-20 10:49 | NUR ---
Spoke to LETITIA García regarding home abx. Gave script for oral doxycycline and cipro and placed in front of chart. MIKE Ballard was informed of prescription on chart. Pt currently pending debridement by podiatry.
[2020-01-20] MEDS: ONDANSETRON HCL INJ 2MG/ML 2ML 2 MG/ML VIAL IV PRN ×2 (11:10→16:15)
[2020-01-20] MEDS: MORPHINE SULFATE INJ 4 MG/ML INJ 1ML IV PRN ×3 (11:10→21:21)
--- NOTE | 2020-01-20 11:43 | Progress Note ---
DATE: REVIEW OF SYSTEMS: No nausea, no vomiting. No fever. No chills. No chest pain. No shortness of breath. No headache. No rash. No cough. Right foot 1st toe wound pain. The patient states that it is feeling better today. MEDICATIONS: Medication list reviewed. As far as Infectious Disease point of view, the patient is on vancomycin IV and Rocephin. LABORATORY STUDIES: No new CBC or BMP from today. Toxicology vancomycin trough was 17 this morning. Discussed with the nurse. We will continue with the same dosage of vancomycin IV and same frequency. MICROBIOLOGY: No new microbiology studies are available. RADIOLOGY STUDIES: CT of the foot showed diffuse osteopenia with postsurgical/chronic-appearing posttraumatic and associated scattered chronic-appearing degenerative changes as described. No definite osseous erosion is seen to suggest osteomyelitis. PHYSICAL EXAMINATION: VITAL SIGNS: Temperature 97.1, pulse 75, respirations 20, and blood pressure 162/66. GENERAL: Alert and oriented, no acute distress. CV: S1 and S2. CHEST: Equal expansion. Clear to auscultation. No acute distress. ABDOMEN: Soft and nontender. No distention. HEENT: Moist. No pallor. No JVD. EXTREMITIES: Right 1st toe tip with necrotic tissues seems to be dry. No active drainage noted. No significant erythema of the toe. Still remains with some pain during physical exam. ASSESSMENT AND PLAN: 1. Cellulitis of the right 1st toe. 2. Dry gangrene wound, right 1st toe. 3. Chronic kidney disease. 4. Atherosclerotic disease. CT as mentioned above, no obvious sign of osteomyelitis. Continue the IV antibiotics at this point. Podiatry noted possible debridement today by Dr. Barrientos. Continue with wound care. Further management of this patient is based on daily findings on laboratory and physical examination. Thank you for this dictation. Discussed with Dr. Vale in details. Please refer to chart for more information. Dictated by Abdi Marrero PA-C (Al) Hao Vale MD /MODL /[id number]
[2020-01-20] MEDS: ASPIRIN 81 MG CHEW TAB PO SCH (11:48)
[2020-01-20] MEDS: CLOPIDOGREL BISULFATE 75 MG TAB PO SCH (11:48)
[2020-01-20] MEDS: COLLAGENASE 5 GM TUBE TOP SCH (11:48)
--- NOTE | 2020-01-20 12:03 | NUR ---
BED SIDE DEBRIDEMENT COMPLETED, DRESSING APPLIED TO RIGHT GREAT TOE ORDERED. IN BED WITH CALL LIGHT AT REACH.
[2020-01-20] MEDS: CEFTRIAXONE SOD 2 GM/NS 100 ML 100 ML IV SCH (17:07)
--- NOTE | 2020-01-20 19:00 | Operative Report ---
DATE OF PROCEDURE: SURGEON: Dustin Barrientos DPM PREOPERATIVE DIAGNOSIS: Distal digital gangrene, right hallux. POSTOPERATIVE DIAGNOSIS: Distal digital gangrene, right hallux. NAME OF THE OPERATION: Deep wound debridement and excisional, right foot. ANESTHESIA: Oral pain medication and distal peripheral neuropathy. HEMOSTASIS: None used. PROCEDURE IN DETAIL: The patient was bedside and prepped and draped in usual aseptic manner utilizing Betadine prep. The right hallux was checked for sensitivity and the patient was completely insensate at the distal aspect. Full-thickness wound care, debridement excisional in nature was performed of the skin and subcutaneous tissue, distal aspect of the right hallux. The hallux was debrided with minimal bleeding noted. The area was irrigated with copious amounts of sterile saline solution. The appropriate postoperative dressings with Santyl and wet-to-dry were applied for further enzymatic debridement. The underlying tissue had mixture of fibrous and yellowish subcutaneous tissue. No signs or symptoms of obvious purulence or exudate or sharmaine pus or infection. The patient tolerated the procedure very well. Assisted by nursing staff, Elio. After the appropriate dressing, the patient showed no strike through or bleeding and had no pain. The patient is otherwise free to discharge when it is okay with all the of the doctors and follow up with me in one week postoperatively. The wound base itself at the distal hallux on the right measured 3 cm in width, 2 cm in height, and 1 cm deep. MARIE Culver/JOSE MIGUEL /[id number]
--- NOTE | 2020-01-20 19:20 | NUR ---
BEDSIDE SHIFT REPORT RECEIVED FROM DAY RN. PT IS ALERT AND ORIENTED X3. PT SPEAKS MALTESE AND BANGLADESHI. LEFT EJ SL- SITE HEALTHY AND INTACT. DRESSING TO RT GREAT TOE DRY AND INTACT. RT GREAT TOE ULCER DEBRIDED ON 01/19. TELE ON- PACED. PT AMBULATES WITH WALKER TO BATHROOM. PAINFUL TO WALK ON RT FOOT BUT PT REFUSE BEDSIDE COMMODE.CALL LIGHT WITHIN REACH. BED IN LOW POSITION.
--- NOTE | 2020-01-20 22:00 | NUR ---
DR PAGAN NOTIFIED ACCUCHECK 401. RECEIVED NEW ORDER TO CHANGE SL SCALE. PT GIVEN SNACK AND INULIN 10 UNIT LISPRO GIVEN ORDERED. RECHECKED ACCUCHECK PRIOR TO ADM ACCUCHECK WAS 296. WILL MONITOR ACCUCHECK CLOSELY. PT HAS HX HYPOGLYCEMIA AT TIMES.
[2020-01-21] VITALS (9 sets, daily range): BP systolic 130–162; BP diastolic 48–69
[2020-01-21] MEDS: ACETAMINOPHEN 325 MG TAB PO PRN (05:48)
--- NOTE | 2020-01-21 06:58 | NUR ---
Received bedside shift report from off going nurse. Patient is in stable condition. No s/s of distress noted. Call light within reach. Bed in the lowest position.
[2020-01-21 07:07] LABS: BASOPHILS % 0.5 % (0.0-1.0); EOSINOPHILS # (AUTO) 0.3 (0.0-0.4); EOSINOPHILS % 5.6 % (0.0-6.0); HEMATOCRIT 27.6 % (34.2-44.1); HEMOGLOBIN 8.7 g/dL (12.0-16.0); LYMPHOCYTES # (AUTO) 1.1 (1.0-3.2); LYMPHOCYTES % 17.8 % (18.0-39.1); MEAN CORPUSCULAR HEMOGLOBIN 30.9 pg (28-32); MEAN CORPUSCULAR HGB CONC 31.5 g/dL (31-35); MEAN CORPUSCULAR VOLUME 97.9 fL (81-99); MONOCYTES # (AUTO) 0.6 (0.2-0.8); MONOCYTES % 10.8 % (4.4-11.3); NEUTROPHILS # (AUTO) 3.8 (2.1-6.9); PLATELET COUNT 231 x10e3/uL (140-360); RED BLOOD COUNT 2.82 x10e6/uL (3.6-5.1); RED CELL DISTRIBUTION WIDTH 13.8 % (11.7-14.4)
[2020-01-21 07:24] LABS: ALBUMIN 2.8 g/dL (3.5-5.0); ALBUMIN/GLOBULIN RATIO 0.8 (0.8-2.0); ANION GAP 12.9 mmol/L (8-16); CALCIUM 9.3 mg/dL (8.4-10.2); CREATININE, SERUM 1.49 mg/dL (0.57-1.11); MAGNESIUM 1.8 MG/DL (1.3-2.1); POTASSIUM 4.9 mmol/L (3.5-5.1)
[2020-01-21] MEDS ORDERED: INSULIN LISPRO 100 UNIT/1 ML 3ML VIAL SQ SCH (07:30)
--- NOTE | 2020-01-21 08:36 | NUR ---
ACCUCHECK AFTER FOOD WAS 86. wILL CONTINUE TO MONITOR ACCUCHECK.
[2020-01-21] MEDS: METOPROLOL SUCCINATE 25 MG TAB XL PO SCH ×2 (08:45→16:38)
[2020-01-21] MEDS: VANCOMYCIN 1GM/NS 250 ML 250 ML IV SCH (08:45)
[2020-01-21] MEDS: ASPIRIN 81 MG CHEW TAB PO SCH (08:45)
[2020-01-21] MEDS: CLOPIDOGREL BISULFATE 75 MG TAB PO SCH (08:45)
[2020-01-21] MEDS: DIPHENHYDRAMINE HCL 25 MG CAP PO PRN (09:00)
--- NOTE | 2020-01-21 09:35 | NUR ---
LETITIA García rounding on patient, he stated patient is cleared for discharge from his standpoint. Will get clearance from Dr. Barrientos and notify .
[2020-01-21] MEDS ORDERED: POLYETHYLENE GLYCOL 3350 17 GM PACK PO PRN (10:00)
[2020-01-21] MEDS: MORPHINE SULFATE INJ 4 MG/ML INJ 1ML IV PRN ×3 (10:45→21:20)
[2020-01-21] MEDS: ONDANSETRON HCL INJ 2MG/ML 2ML 2 MG/ML VIAL IV PRN ×2 (10:45→16:56)
[2020-01-21] MEDS: INSULIN LISPRO 100 UNIT/1 ML 3ML VIAL SQ SCH ×3 (11:30→20:54)
--- NOTE | 2020-01-21 13:48 | NUR ---
Paged Dr. Barrientos to notify that ID is clearing patient off for discharge. Awaiting legal nurse consultant back.
--- NOTE | 2020-01-21 13:56 | NUR ---
Dr. Roche is covering for Dr. Barrientos. Patient is cleared for discharge.
--- NOTE | 2020-01-21 13:58 | NUR ---
Dr. Elier Wilcox gave clearance for discharge on patient.
[2020-01-21] MEDS: COLLAGENASE 5 GM TUBE TOP SCH (14:34)
[2020-01-21] MEDS: CEFTRIAXONE SOD 2 GM/NS 100 ML 100 ML IV SCH (16:38)
--- NOTE | 2020-01-21 19:38 | NUR ---
Bedside shift report given to oncoming nurse. Patient is resting in bed. No acute distress noted. Call light within reach. Bed in the lowest position.
[2020-01-22] VITALS (8 sets, daily range): BP systolic 141–157; BP diastolic 48–69
[2020-01-22] MEDS: MORPHINE SULFATE INJ 4 MG/ML INJ 1ML IV PRN ×4 (06:17→21:34)
--- NOTE | 2020-01-22 07:04 | NUR ---
RECEIVED BEDSIDE SHIFT REPORT FROM OFF GOING NURSE. PATIENT IS RESTING IN BED. NO ACUTE DISTRESS NOTED AT THIS TIME. CALL LIGHT WITHIN REACH. BED IN THE LOWEST POSITION.
--- NOTE | 2020-01-22 07:04 | NUR ---
Patient condition throughout the night was stable, patient endorsed to next shift for continuity of care.
[2020-01-22] MEDS: INSULIN LISPRO 100 UNIT/1 ML 3ML VIAL SQ SCH ×4 (08:11→21:30)
[2020-01-22] MEDS: METOPROLOL SUCCINATE 25 MG TAB XL PO SCH ×2 (08:18→17:05)
[2020-01-22] MEDS: CLOPIDOGREL BISULFATE 75 MG TAB PO SCH (08:18)
[2020-01-22] MEDS: ASPIRIN 81 MG CHEW TAB PO SCH (08:18)
[2020-01-22] MEDS: DIPHENHYDRAMINE HCL 25 MG CAP PO PRN (08:18)
[2020-01-22] MEDS: VANCOMYCIN 1GM/NS 250 ML 250 ML IV SCH (08:18)
--- NOTE | 2020-01-22 11:50 | NUR ---
BG assessed and is 33, patient is awake and talking. Administered Dextrose PRN as ordered. Will re-assess BG in 30 mins.
[2020-01-22] MEDS: ONDANSETRON HCL INJ 2MG/ML 2ML 2 MG/ML VIAL IV PRN ×3 (12:27→21:34)
--- NOTE | 2020-01-22 12:41 | NUR ---
Re-assessed patient's BG at 1220 and it was 163. Will continue to monitor. Attending MD notified at this time.
--- NOTE | 2020-01-22 12:42 | NUR ---
NO NEW ORDERS RECEIVED.
[2020-01-22] MEDS: COLLAGENASE 5 GM TUBE TOP SCH (13:53)
[2020-01-22] MEDS: CEFTRIAXONE SOD 2 GM/NS 100 ML 100 ML IV SCH (17:05)
--- NOTE | 2020-01-22 19:06 | NUR ---
Bedside shift report given to oncoming nurse. Patient is resting in bed. No acute distress noted at this time. Call light within reach. Bed in the lowest position.
[2020-01-22] MEDS ORDERED: SODIUM CHLORIDE 0.9% 250ML 250 ML ONE (19:57)
[2020-01-23] VITALS (8 sets, daily range): BP systolic 135–176; BP diastolic 53–73
--- NOTE | 2020-01-23 00:59 | Consultation ---
DATE OF CONSULTATION: 01/19/2020 Cardiology Consult Note REASON FOR CONSULT: Diabetic foot ulcer. CHIEF COMPLAINT: "My toe is dark." HISTORY OF PRESENT ILLNESS: The patient is a 69-year-old female with history of poorly-controlled diabetes, hypertension, hyperlipidemia, who presents with nonhealing right toe wound and infection, admitted for IV antibiotics for diabetic foot ulcer. Denies any prior history of CAD or peripheral arterial disease. REVIEW OF SYSTEMS: As per HPI, otherwise negative. PAST MEDICAL HISTORY: As noted in the HPI. PAST SURGICAL HISTORY: Unremarkable. OUTPATIENT MEDICATIONS: Reviewed. ALLERGIES: NO KNOWN DRUG ALLERGIES. FAMILY HISTORY: Noncontributory. SOCIAL HISTORY: Does not smoke, drink, or abuse drugs. PHYSICAL EXAMINATION: VITAL SIGNS: Temperature afebrile, pulse 89, respiratory rate 18, blood pressure 154/69, saturating 99% on room air. GENERAL: Elderly female, in no acute distress. CARDIOVASCULAR: Regular rate and rhythm. No murmurs, rubs, or gallops. LUNGS: Clear to auscultation anteriorly. ABDOMEN: Soft, nontender, nondistended. NEURO AND PSYCH: Alert and oriented to person, and time. Normal affect. INPATIENT MEDICATIONS: Reviewed. LABORATORY DATA: Reviewed. TELEMETRY DATA: Reviewed, shows normal sinus rhythm. IMAGING DATA: Reviewed. CT scan of the foot does not show any clear osteomyelitis. Lower extremity ultrasound performed, shows no significant peripheral arterial disease with multiphasic flow all the way down to the foot. ASSESSMENT: Diabetic foot ulcer, suspected peripheral arterial disease. PLAN: Arterial Doppler shows essentially normal flow all the way down to the foot. Given that she is a diabetic with chronic kidney disease, I do not recommend angiogram at this time. Continue to treat clinically with antibiotics and wound care. If the wound does not heal after receiving appropriate care, we will consider outpatient peripheral angiography. Thank you for this consult. We will continue to follow. The patient is okay to be discharged from cardiovascular standpoint. MD CHAS Echavarria/JOSE MIGUEL /[id number]
[2020-01-23 05:59] LABS: BASOPHILS % 0.8 % (0.0-1.0); EOSINOPHILS # (AUTO) 0.4 (0.0-0.4); HEMOGLOBIN 9.1 g/dL (12.0-16.0); LYMPHOCYTES # (AUTO) 1.3 (1.0-3.2); MEAN CORPUSCULAR HGB CONC 31.4 g/dL (31-35); MEAN CORPUSCULAR VOLUME 98.6 fL (81-99); MONOCYTES # (AUTO) 0.5 (0.2-0.8); MONOCYTES % 10.3 % (4.4-11.3); NEUTROPHILS % 57.5 % (38.7-80.0); PLATELET COUNT 219 x10e3/uL (140-360); RED BLOOD COUNT 2.94 x10e6/uL (3.6-5.1); RED CELL DISTRIBUTION WIDTH 13.7 % (11.7-14.4)
[2020-01-23 06:27] LABS: ALBUMIN 2.7 g/dL (3.5-5.0); ALBUMIN/GLOBULIN RATIO 0.9 (0.8-2.0); ANION GAP 15.7 mmol/L (8-16); CALCIUM 8.9 mg/dL (8.4-10.2); CREATININE, SERUM 1.34 mg/dL (0.57-1.11); MAGNESIUM 1.6 MG/DL (1.3-2.1); POTASSIUM 4.7 mmol/L (3.5-5.1)
--- NOTE | 2020-01-23 07:20 | NUR ---
Bedside report and walking rounds completed with oncoming nurse. Patient in bed with call light within reach. No issues or concerns noted.
[2020-01-23] MEDS: INSULIN LISPRO 100 UNIT/1 ML 3ML VIAL SQ SCH ×4 (08:02→21:32)
--- NOTE | 2020-01-23 08:56 | NUR ---
PA of Dr Vale (Al) had rounds , notified Vanco trough 16, new order recvd to continue the dose
[2020-01-23] MEDS: ASPIRIN 81 MG CHEW TAB PO SCH (09:14)
[2020-01-23] MEDS: METOPROLOL SUCCINATE 25 MG TAB XL PO SCH ×2 (09:14→17:05)
[2020-01-23] MEDS: CLOPIDOGREL BISULFATE 75 MG TAB PO SCH (09:14)
[2020-01-23] MEDS: MORPHINE SULFATE INJ 4 MG/ML INJ 1ML IV PRN ×2 (09:31→20:30)
[2020-01-23] MEDS: VANCOMYCIN 1GM/NS 250 ML 250 ML IV SCH (10:37)
--- NOTE | 2020-01-23 11:45 | Progress Note ---
DATE: SUBJECTIVE: The patient is seen and evaluated. Available labs and notes reviewed. REVIEW OF SYSTEMS: The patient remains with a right 1st toe pain. Otherwise, no nausea, no vomiting, no fever, no chills, no chest pain, no shortness of breath, no headache, no dysuria. PHYSICAL EXAMINATION: VITAL SIGNS: Temperature 97.5, pulse is 75, respiration 18, and blood pressure 138/54. GENERAL: Alert and oriented. CV: S1 and S2. CHEST: Equal expansion. Clear to auscultation. No acute distress. HEENT: Moist. No pallor. No JVD. EXTREMITIES: Right 1st toe tender to touch. Wound is dry, however, it seems to have some drainage coming from under the nail when squeezed the toe, but it is not much. I am not sure if it is serous fluid or pus. MEDICATIONS: Medication list reviewed and as far as Infectious Disease point of view, the patient is on vancomycin IV and Rocephin. LABORATORY STUDIES: White count of 5.26, hemoglobin 9.1, and platelet 219. Toxicology; vancomycin trough 16. Sodium was 135, potassium 4.7, and creatinine 1.34. MICROBIOLOGY: No new microbiology. RADIOLOGY: No new radiology studies available. ASSESSMENT AND PLAN: 1. Cellulitis of the right 1st toe. CAT scan was negative for osteomyelitis. 2. Right 1st toe dry wound. 3. Chronic kidney disease. 4. Diabetes mellitus type 2. 5. Atherosclerotic disease. 6. Pain. 7. Debility. 8. Continue with antibiotics. Plan is for SNF. We will continue with IV antibiotics at this point and monitor the toe drainage. The patient agrees for 1st toe amputation. Discussed with Dr. Vale and please refer to chart for more information. Dictated by Abdi Marrero PA-C (Al) Hao Vale MD /MODL /[id number]
--- NOTE | 2020-01-23 13:31 | NUR ---
PROVIDED LIST FOR SNF PER ORDER AND DISCUSSED WITH PT ABOUT THE NEED FOR IV ABX FOR 2 WEEKS. SHE AT FIRST SAID NO AND CALLED SON ON HER CELL RAPHEL, EXPLAINED TO HIM THE ORDER AND NEED FOR TWO WEEKS OF ABX. HE STATES IT IS UP TO HIS MOTHER. LEFT LIST IN ROOM AND SHE WILL DISCUSS WITH HER . LEFT COVID FORM ON CHART FOR DOCTOR SIGNATURE, PT STATES SHE WILL SPEAK WITH DOCTOR EJ AND THEN LET NURSE KNOW WHAT SHE DECIDES. WILL FOLLOW UP.
[2020-01-23] MEDS: COLLAGENASE 5 GM TUBE TOP SCH (14:50)
--- NOTE | 2020-01-23 15:06 | NUR ---
Nutrition Screen Note RD Recommendation for Physician: - Continue current diet - BG and insulin management per MD Plan of Care: RD following, monitoring for tolerance and adequacy - Diet education provided 01/22. Nutrition reason for involvement: LOS Primary Diagnose(s): diabetic foot ulcer, hypoglycemia PMH: Dm2, CKD, pacemaker, CAD with stents, PVD Ht: 65 in Wt: 133.06 lb BMI: 22.1 kg/m2 IBW: [address] Assessment: (01/22) 69 YOF admitted for a diabetic foot ulcer, pt seen today for LOS. Pt reports fair appetite and good po intake currently and CLINICAL PROJECT MANAGER, noted 75% meal intake per chart. Pt reports UBW of 128# a month ago, no wt loss noted. Pt denies any N/V/C/D or difficulties chewing or swallowing. Pt denies following any diet restrictions at home. Pt receptive to diet education at time of visit, materials provided to pt in [place]an- no questions at this time. Chart reviewed. Labs and meds reviewed. Current Diet: 1800 ADA Malnutrition Evaluation (01/23/20) The patient does not meet criteria for a specified degree of malnutrition at this time. Will re-evaluate at follow-up as appropriate. Diet Education Needs Assessment: Diet education indicated, pt receptive and education provided 01/22. Learner(s): pt Barriers: language Cultural/Language Modifications: handouts provided in [place]an Readiness: ready Method: handouts, discussion Topics: heart healthy diabetic nutrition therapy Understanding/Compliance: fair Diet tolerance: tolerating po Nutrition Care Level: low Signed: Florecita Solis RD, LD, [facility]
[2020-01-23] MEDS: CEFTRIAXONE SOD 2 GM/NS 100 ML 100 ML IV SCH (17:04)
[2020-01-23] MEDS: DIPHENHYDRAMINE HCL 25 MG CAP PO PRN (17:06)
--- NOTE | 2020-01-23 18:51 | NUR ---
patient resting in bed, no distress noted, dressing changed, DR Hua had rounds
--- NOTE | 2020-01-23 19:17 | Progress Note ---
DATE: 01/23/2020 The patient is seen this evening, doing well status post debridement right hallux with continued pain. The patient has some redness and some minimal drainage from the distal aspect of the toe. There is an otherwise present dry distal eschar, which is much improved from the pre-debridement status. The wound base is necrotic with a dry pregangrenous appearance. Osteomyelitis scanning has been negative to this point. The patient has agreed for placement at halfway facility and is awaiting placement. She will continue with IV antibiotics as per Dr. Vale and follow with me on an outpatient basis once discharged. Information was dispensed to the patient and she will call for followup appointment. Otherwise doing well and continue local wound care and IV antibiotics while in-house prior to discharge. MARIE Culver/JOSE MIGUEL /[id number]
--- NOTE | 2020-01-23 20:00 | NUR ---
Recieved pt in bed awake a/o x3 with no acute distress noted Dsg to r great toe removed, pt state by md. Pt request pain medication. Call light and personal items within reach. Will cont to mon.
[2020-01-23] MEDS: ONDANSETRON HCL INJ 2MG/ML 2ML 2 MG/ML VIAL IV PRN (20:30)
--- NOTE | 2020-01-23 20:30 | NUR ---
Recieve multiple calls from patient family member stating no one has been in to see pt, and medicate pt for pain, and to dress wound. States patient is crying in pain. Family member would like pt blood sugar taken. Pt medicated per MAR
--- NOTE | 2020-01-23 22:30 | NUR ---
Pt BS [phone] and [phone] MD notified orders for 10 units insulin administration noted and given. Pt states pain has improved. Pt asked questions to this nurse regarding staying in the skilled nursing forever or going for abx. Pt ask if someone will monitor her vital signs at skilled nursing. Pt states she was nervous and crying because she is scared Coronavirus is at skilled nursing. Pt called daughter on personal cell phone to speak with this nurse. Explained to pt daughter patients concerns.
[2020-01-24] VITALS: BP 132/53
[2020-01-24] MEDS: MORPHINE SULFATE INJ 4 MG/ML INJ 1ML IV PRN ×4 (01:59→14:45)
[2020-01-24] MEDS: ACETAMINOPHEN 325 MG TAB PO PRN ×2 (03:55→09:09)
[2020-01-24 04:00] VITALS: BP 173/60
[2020-01-24] MEDS: INSULIN LISPRO 100 UNIT/1 ML 3ML VIAL SQ SCH ×2 (07:30→11:30)
--- NOTE | 2020-01-24 07:31 | NUR ---
BS was 46, Patient alert, talking to nurse up in bed, 3 cups of orsnge juice given, she said "I Feel better Now", will recheck BS in 15 mins, keep monitoring
[2020-01-24 08:16] VITALS: BP 150/71
[2020-01-24 08:18] VITALS: BP 150/71
[2020-01-24] MEDS: DIPHENHYDRAMINE HCL 25 MG CAP PO PRN (08:44)
[2020-01-24] MEDS: CLOPIDOGREL BISULFATE 75 MG TAB PO SCH (09:08)
[2020-01-24] MEDS: ASPIRIN 81 MG CHEW TAB PO SCH (09:08)
[2020-01-24] MEDS: METOPROLOL SUCCINATE 25 MG TAB XL PO SCH (09:08)
[2020-01-24] MEDS: VANCOMYCIN 1GM/NS 250 ML 250 ML IV SCH (09:08)
--- NOTE | 2020-01-24 09:34 | NUR ---
SPOKE WITH PT SHE SIGNED CHOICE FOR [facility], FILED IN CHART AND WILL FAX CLINICALS TO [phone]
--- NOTE | 2020-01-24 10:49 | Progress Note ---
DATE: SUBJECTIVE: The patient is seen and evaluated. Available labs and notes reviewed. Discussed with the case management. COVID-19 form signed. Discussed with Dr. Vale in details. REVIEW OF SYSTEMS: Remains with pain of right 1st toe, sensitive to touch. No nausea, vomiting, fever, chills, chest pain, shortness of breath, headache, or rash. PHYSICAL EXAMINATION: VITAL SIGNS: Temperature is 97.6, pulse is 64, respiration 20, and blood pressure 150/71. GENERAL: Alert and oriented, no acute distress. CV: S1 and S2. CHEST: Equal expansion. Clear to auscultation. ABDOMEN: Soft and nontender. No distention. HEENT: Moist. No pallor. No JVD. EXTREMITIES: Right 1st toe wound/cellulitis on local care. No significant change since yesterday exam. MEDICATIONS: Medication list reviewed and as far as Infectious Disease point of view, the patient is on vancomycin IV and Rocephin. LABORATORY STUDIES: Vancomycin trough 16 on 01/22. No new BMP or CBC from today. MICROBIOLOGY: No new microbiology studies. RADIOLOGY: No new radiology studies. ASSESSMENT AND PLAN: 1. Right 1st toe cellulitis. 2. Right 1st toe wound. 3. Concern new drainage from under the toenail of the right 1st toe. 4. Chronic kidney disease. 5. Diabetes. 6. Atherosclerotic disease. 7. Pain. 8. Hypertension. 9. Discussed with case management. The patient is in progress to be transferred to halfway facility. Continue with IV antibiotics and the patient needs to be reassessed on frequent basis when the patient is at halfway facility. Discussed with Dr. Vale in details. Overall guarded prognosis. Please refer to chart for more information. Dictated by Abdi Marrero PA-C (Al) Hao Vale MD /MODL /[id number]
[2020-01-24 11:47] VITALS: BP 147/65
--- NOTE | 2020-01-24 12:31 | NUR ---
[facility]IT[facility] FACILITY DISCHARGE INFORMATION PATIENT HAS BEEN ACCEPTED TO: NAME: JAYESH PINA ADDRESS:[id number] [place] [address] ACCEPTING PMO BUSINESS ANALYST:BERNARDINO MCBRIDE ACCEPTING MD: EJ ROOM: [id number] NURSE CALL REPORT TO: [phone] IMM SIGNED AND OBTAINED (if applicable): IMM THE FOLLOWING DOCUMENTS MUST ACCOMPANY PATIENT FOR TRANSFER: COPIED CHART: PACKET
--- NOTE | 2020-01-24 13:17 | NUR ---
EDUCATED ABOUT IMM, SIGNED, FILED IN CHART, WITH COPY LEFT WITH FAMILY AT BEDSIDE.
--- NOTE | 2020-01-24 14:01 | NUR ---
Notified Dr Costello that patient going SNF for IV antibiotic need MID LINE (per SNF). He said script for PO antibiotic in front of chart patient can be discharged with that
[2020-01-24] MEDS: COLLAGENASE 5 GM TUBE TOP SCH (14:50)
--- NOTE | 2020-01-24 15:29 | NUR ---
[facility], Per Dr Costello patient can be transferred with PO antibiotic which is already in the chart, Left EJ removed
--- NOTE | 2020-01-24 16:22 | NUR ---
SPOKE WITH DR PAGAN, HE STATES HE DIDNT MEAN FOR HER TO GO HOME ON PO HE WANTS HER TO GO TO THE FACILITY, LET HIM KNOW THAT ABX SHE WAS ON HERE CALLED THE FACILITY, THE GEOPHYSICAL PROSPECTING PERMIT AGENT TOBY WILL PUT IN THE MIDLINE AND PUT THE PT BACK ON THE IV ABX AT THE FACILITY FOCUSED CARE.
--- NOTE | 2020-01-26 04:06 | Discharge Summary ---
DISCHARGE DIAGNOSES: 1. Foot cellulitis. 2. Diabetes. 3. Hypertension. HISTORY OF PRESENT ILLNESS AND HOSPITAL COURSE: See hospital chart for details. The patient is a lady, who presented with a necrotic toe. Workup was negative for osteomyelitis and she did have an I and D by Dr. Barrientos, where she was placed on IV antibiotics with vancomycin, Rocephin per Infectious Disease. She did well with this. At the time of discharge, she was doing well. She went over there to save her toes, so she was then transferred to a [facility] facility at [facility], while I take care of her there with continuation of vancomycin and Rocephin. Peripheral arterial studies were unremarkable. She was seen by Cardiology. The patient is fully aware that she has high risk of amputation. Please see hospital chart for full details. MD ELDER Vasquez/JOSE MIGUEL /[id number]
== END 2020-01-24 16:48 | DRG 264 ==
LOC: FSED 14:24 → ERHOLD 19:12 → MED/SURG3 20:49
PROVIDERS: ADMIT Internal Medicine; ATTEND Internal Medicine
PROC: 0JBQ0ZZ Excision of Right Foot Subcutaneous Tissue and Fascia, Open Approach (ICD-10-PCS; principal; 2020-01-20)
DX: E11.52 Type 2 diabetes mellitus with diabetic peripheral angiopathy with gangrene (principal); I50.33 Acute on chronic diastolic (congestive) heart failure; I96 Gangrene, not elsewhere classified; L03.115 Cellulitis of right lower limb; I13.0 Hypertensive heart and chronic kidney disease with heart failure and stage 1 through stage 4 chronic kidney disease, or unspecified chronic kidney disease; E11.42 Type 2 diabetes mellitus with diabetic polyneuropathy; Z79.4 Long term (current) use of insulin; I25.10 Atherosclerotic heart disease of native coronary artery without angina pectoris; Z95.0 Presence of cardiac pacemaker; E78.5 Hyperlipidemia, unspecified; E11.22 Type 2 diabetes mellitus with diabetic chronic kidney disease; N18.3 Chronic kidney disease, stage 3 (moderate); D64.9 Anemia, unspecified
CPT/HCPCS: 36415; 80053; 80202; 82948; 83735; 85025; 85610; 93926; 93931; 96372; 99284; J0295; J0696; J2270; J2405; J3370; J7050; J7799

== ENCOUNTER → 2020-06-04 | Day surgery (SDC) | payer MEDICARE, OTHER ==
[2020-05-30 14:51] LABS: BASOPHILS # (AUTO) 0.1 (0.0-0.1); EOSINOPHILS # (AUTO) 0.4 (0.0-0.4); EOSINOPHILS % 6.8 % (0.0-6.0); HEMATOCRIT 33.3 % (34.2-44.1); HEMOGLOBIN 10.3 g/dL (12.0-16.0); LYMPHOCYTES # (AUTO) 1.5 (1.0-3.2); LYMPHOCYTES % 24.4 % (18.0-39.1); MEAN CORPUSCULAR HEMOGLOBIN 29.5 pg (28-32); MEAN CORPUSCULAR HGB CONC 30.9 g/dL (31-35); MEAN CORPUSCULAR VOLUME 95.4 fL (81-99); MONOCYTES # (AUTO) 0.7 (0.2-0.8); MONOCYTES % 11.7 % (4.4-11.3); NEUTROPHILS # (AUTO) 3.4 (2.1-6.9); NEUTROPHILS % 55.8 % (38.7-80.0); PLATELET COUNT 301 x10e3/uL (140-360); RED BLOOD COUNT 3.49 x10e6/uL (3.6-5.1); RED CELL DISTRIBUTION WIDTH 16.3 % (11.7-14.4)
[2020-05-30 15:13] LABS: ALBUMIN 3.8 g/dL (3.5-5.0); ALBUMIN/GLOBULIN RATIO 1.3 (0.8-2.0); ANION GAP 20.3 mmol/L (8-16); CALCIUM 8.8 mg/dL (8.4-10.2); CREATININE, SERUM 1.51 mg/dL (0.57-1.11); POTASSIUM 5.3 mmol/L (3.5-5.1)
[~2020-06-04] VITALS: Ht 317.5 cm; Wt 60.3 kg
[2020-06-04] VITALS (8 sets, daily range): BP systolic 131–171; BP diastolic 57–69
[~2020-06-04] MED LIST changes: +ALPRAZOLAM 0.5 MG TAB ONE; +ATORVASTATIN CA20 MG PO; +DIPHENHYDRAMINE HCL 25 MG CAP ONE; +ENTRESTO 24 MG1 EACH PO; +FENTANYL CITRATE/PF 100MCG/2 ML INJ ONE; +HEPARIN SOD/SOD CHLORIDE 2,000 ML ONE; +IOPAMIDOL 370 MG/ML 200 ML INFUS..BTL INJ ONE; +LIDOCAINE HCL 2% LOCAL 20 ML VIAL ONE; +METOPROLOL TART50 MG PO; +MIDAZOLAM HCL 2 MG/2 ML VIAL ONE; +RANEXA1000 MG PO; +SODIUM CHLORIDE 0.9% 1000ML 1,000 ML ONE
--- NOTE | 2020-06-04 15:15 | NUR ---
Pt meets discharge criteria. VS wnl, alert and oriented. Pt and Family Understands discharge instruction. Overall general assess w/o gross outliers. Skin warm, dry, and intact. Right groin dressing soft w/o s/s of hematoma. Pedal pulses unchanged. IV removed and appears distal tip is intact. Pt maintains mask on for COVID 19 precautions being taken by wheel chair to awaiting car. Transfers w/o gross distress with discharge paperwork in hand.
--- NOTE | 2020-06-04 20:52 | Operative Report ---
DATE OF PROCEDURE: 06/04/2020 SURGEON: Ruddy Farias MD INDICATION: Coronary artery disease, abnormal stress test, congestive heart failure. PROCEDURES PERFORMED: 1. Left heart catheterization, selective coronary angiography. 2. Conscious sedation administration, hemodynamic and neurological monitoring in recovery by medical lab technologist RN, supervision by , 35 minutes. 3. Deployment of right groin Mynx closure device. COMPLICATIONS: None. RECOMMENDATIONS: Medical therapy. DESCRIPTION OF PROCEDURE: Access was obtained in the right femoral artery. A 6-[place]izen [place] sheath was placed. Coronary angiography demonstrated 20-30% distal left main stenosis stents in the left anterior descending mid and distal portion, and mid right coronary artery were widely patent. The remaining vessels had diffuse 30% to 50% stenosis. Circumflex was small vessel, midportion was chronically occluded. No intervention deemed necessary. LV end- diastolic pressure of 15. No gradient across the aortic valve pullback. Right groin repaired using Mynx closure device. The patient discharged home. Ruddy Farias MD KSB/MODL /[id number]
== END | disposition home or self-care (01) ==
LOC: CATH LAB 11:03
PROVIDERS: ATTEND Internal Medicine Interventional Cardiology
DX: I25.118 Atherosclerotic heart disease of native coronary artery with other forms of angina pectoris (principal); R94.39 Abnormal result of other cardiovascular function study; I11.0 Hypertensive heart disease with heart failure; I50.23 Acute on chronic systolic (congestive) heart failure; I73.9 Peripheral vascular disease, unspecified; I25.2 Old myocardial infarction; E11.9 Type 2 diabetes mellitus without complications; Z01.812 Encounter for preprocedural laboratory examination; Z11.59 Encounter for screening for other viral diseases; Z79.02 Long term (current) use of antithrombotics/antiplatelets; Z79.82 Long term (current) use of aspirin; Z79.4 Long term (current) use of insulin; Z95.5 Presence of coronary angioplasty implant and graft; Z95.810 Presence of automatic (implantable) cardiac defibrillator; Z82.49 Family history of ischemic heart disease and other diseases of the circulatory system
CPT/HCPCS: 36415 ×2; 80053; 82948; 85025; 93458; C1760; C1769; C1887; J2001; J2250; J3010; J7030; Q9967; U0002; 99152; 99153

== ENCOUNTER → 2020-07-11 | Day surgery (SDC) | payer MEDICARE, OTHER ==
[2020-07-06 11:50] LABS: BASOPHILS # (AUTO) 0.1 (0.0-0.1); BASOPHILS % 1.1 % (0.0-1.0); EOSINOPHILS # (AUTO) 0.4 (0.0-0.4); EOSINOPHILS % 6.4 % (0.0-6.0); HEMATOCRIT 30.7 % (34.2-44.1); HEMOGLOBIN 9.7 g/dL (12.0-16.0); LYMPHOCYTES # (AUTO) 1.2 (1.0-3.2); MEAN CORPUSCULAR HEMOGLOBIN 30.7 pg (28-32); MEAN CORPUSCULAR HGB CONC 31.6 g/dL (31-35); MEAN CORPUSCULAR VOLUME 97.2 fL (81-99); MONOCYTES # (AUTO) 0.5 (0.2-0.8); MONOCYTES % 9.9 % (4.4-11.3); NEUTROPHILS # (AUTO) 3.4 (2.1-6.9); NEUTROPHILS % 61.4 % (38.7-80.0); PLATELET COUNT 306 x10e3/uL (140-360); RED BLOOD COUNT 3.16 x10e6/uL (3.6-5.1); RED CELL DISTRIBUTION WIDTH 15.3 % (11.7-14.4)
[2020-07-06 12:10] LABS: ALBUMIN 3.2 g/dL (3.5-5.0); ALBUMIN/GLOBULIN RATIO 0.9 (0.8-2.0); CALCIUM 8.8 mg/dL (8.4-10.2); CREATININE, SERUM 1.37 mg/dL (0.57-1.11)
[~2020-07-11] VITALS: Ht 165.1 cm; Wt 58.1 kg
[2020-07-11] VITALS (13 sets, daily range): BP systolic 135–188; BP diastolic 54–84
[~2020-07-11] MED LIST changes: -ALPRAZOLAM 0.5 MG TAB ONE; +ASPIRIN 325 MG TAB ONE; +CLOPIDOGREL BISULFATE 75 MG TAB ONE; -DIPHENHYDRAMINE HCL 25 MG CAP ONE; +HEPARIN SOD (PORCINE) 1000 UNIT/ML 30ML ONE; +HYDRALAZINE HCL 20 MG/ML VIAL ONE; +IOPAMIDOL 300MG/ML 100 ML INFUS..BTL IV ONE; -IOPAMIDOL 370 MG/ML 200 ML INFUS..BTL INJ ONE; +KEFLEX500 MG PO; +METOPROLOL SUCC25 MG PO; +NITROGLYCERIN/D5W 200 MCG/ML 250 ML ONE; +PREDNISONE20 MG PO
--- NOTE | 2020-07-11 11:51 | NUR ---
1151 am RECEIVING NOTE [facility]......s/p Rt leg fix by Dr Wilcox......................................................... Bedside report received from MIKE Mehta. Identifierx2. Alert oriented and appropriate, PERRLA, respirations even and unlabored to room air. Pulses x4 extremities unequal lower ext. Rt lower foot with dressing.Left Pt 1+ Doppler unable to assess DP dressed. Left Pedal pulses PT/DP 1+/1+ palpable and marked. Cap fill brisk < 3 sec. Left angioseal closure down for 2hrs and dc at 4pm. Skin warm and dry integrity appears D/I. IV 20g to left hand 20g, presents healthy w/o s/s of infiltration or complaint. Abdomen soft and supple. pt offered toileting, denies need to urinate or defecate. No personal affects with patient. Family at bedside. Pt and family verbalizes understanding of POC. Currently w/o complaint of pain or need. ds/rn
--- NOTE | 2020-07-11 13:38 | Operative Report ---
DATE OF PROCEDURE: 07/11/2020 SURGEON: Flip Wilcox MD INDICATIONS FOR PROCEDURE: Critical limb ischemia, right lower extremity ulceration. PREPROCEDURE ASSESSMENT: The risks, benefits, and alternatives to the treatment were explained to the patient prior to the procedure. The patient was deemed to be an appropriate candidate for moderate sedation. Informed consent was obtained and documented in the medical record. Please see nursing notes for medications administered throughout the procedure. PROCEDURES PERFORMED: 1. Abdominal aortography. 2. Bilateral lower extremity peripheral angiography. 3. Third-order catheter placement. 4. Balloon angioplasty to the right peroneal artery. 5. Balloon angioplasty to the right anterior tibial artery and had a QUILLER MACHINE FIXER of the right dorsalis pedis artery. 6. ProGlide vascular closure device. 7. Moderate sedation time, 120 minutes. PROCEDURE DETAILS: The patient was brought to the cardiac catheterization laboratory in a fasting state. Left groin was prepped and draped in a sterile fashion. A 6-[place] sheath was inserted in the left common femoral artery using modified Seldinger technique. Abdominal aortogram was performed using Omni Flush catheter. New Era Advantage wire was used through the Omni Flush catheter to access the contralateral iliac system. New Era Advantage was then advanced into the right common femoral artery and Omni Flush catheter was advanced into the right common femoral artery. Multiple angiograms were performed in the right lower extremities. This demonstrated severe runoff disease of all 3 tibial arteries, decided to proceed with intervention. Short sheath was exchanged over the same New Era Advantage wire for 90 cm destination sheath. A Runthrough wire was used to wire across the right peroneal artery. Balloon angioplasty of the right peroneal was performed using a tapered 2.5-2.0 x 210 mm balloon at nominal pressures in overlapping fashion to perform balloon angioplasty of the entire artery. This resulted in excellent angiographic results with significant improvement in flow to the right peroneal artery and its distal branches and collaterals. The balloon was then pulled back and wire was redirected into the right anterior tibial artery all the way to the level of the ankle. The balloon was advanced over the Runthrough wire into the distal right anterior tibial artery and once again balloon angioplasty was performed using the same 2.5 x 2.0 tapered balloon. This resulted in significant improvement to flow to the right anterior tibial artery. However, there remained severe diffuse disease of the right dorsalis pedis and its branches and exchanged the Runthrough wire for a Fielder XT wire, and this was advanced through the QUILLER MACHINE FIXER of the distal right dorsalis pedis artery into the artery of the right great toe. Balloon angioplasty was then performed of the distal dorsalis pedis artery, x 8 mm coronary balloon followed by 2.0 x 15 mm coronary balloon. This resulted in significant improvement to flow to the right toe and there were significant collaterals into the territory of the posterior tibial artery. Multiple angiographic views and selective angiographic views were performed of the foot, however, there was no good visualization of the medial or lateral plantar artery or the posterior tibial artery. It appeared to be chronically occluded all the way from the origin all the way to its branches. Given that there was already significant improvement in perfusion to the foot, we decided to end the procedure here. All wires and balloons were removed. A 6-Kenyan long sheath was exchanged for a 6-Kenyan short sheath once again and angiography of the left lower extremity was performed. Access site was closed using ProGlide vascular closure device. This resulted in excellent hemostasis. There were no immediate complications. ACT near 300 was maintained throughout the procedure using IV boluses of heparin. The patient was already taking aspirin and Plavix at home, which are continued. SIGNIFICANT FINDINGS: Bilateral iliac systems demonstrate some calcification and mild plaquing with no significant obstructive PAD. Abdominal aorta with abnormal size. Renal arteries appear patent. Right lower extremity IMPORT COORDINATION [employer] HEAD and deep femoral artery demonstrates no significant PAD. Superficial femoral artery demonstrates severe calcification and [id number] diffuse plaquing, however, no obstructive . No significant disease of the popliteal artery or the PT trunk, anterior tibial artery proximally diffuse disease vessel with sequential severe lesion 80% to 90% into distal dorsalis pedis artery which is also severe diffuse disease at QUILLER MACHINE FIXER distally. The right peroneal artery is small size, diffusely diseased distally with severe 80% to 90% stenosis distally, provides small infarct and collaterals to the posterior tibial territory. Posterior tibial artery appears to be QUILLER MACHINE FIXER just after origin. There is no significant refilling of posterior tibial artery or its distal branches seen by angiography at any level. Left lower extremity angiogram with runoff demonstrated no significant disease of the IMPORT COORDINATION [employer] PR[employer] HEAD, DFA or the SFA. There is one vessel runoff with patent anterior tibial artery and the left dorsalis pedis. Peroneal and posterior tibial arteries appear to be QUILLER MACHINE FIXER. GRAFTS AND IMPLANTS: ProGlide x1. SPECIMEN REMOVED: None. ESTIMATED BLOOD LOSS: 10 mL. COMPLICATIONS: None. FINAL RECOMMENDATIONS: 1. Continue optimal medical therapy and risk factor control. 2. Continue supportive care and wound care of the right lower extremity. 3. Continue aspirin and Plavix. 4. Follow up in the office with Dr. Farias in 1 to 2 weeks postprocedure as scheduled. MD CHAS Echavarria/JOSE MIGUEL /[id number]
--- NOTE | 2020-07-11 15:00 | NUR ---
1500p Hob elevated tolerating po intake void qs on bedpan for dc at 4pm Daughter at bedside. NO gross issues pain,pallor,pressure or dysrhythmia.DC plans completed to both and daughter for adequate understanding. letty/rn
--- NOTE | 2020-07-11 16:00 | NUR ---
1600Femoral Pt meets discharge criteria. VS wnl, alert and oriented. Pt and Family Understands discharge instruction. Overall general assess w/o gross outliers. Skin warm, dry, and intact. Right groin dressing soft w/o s/s of hematoma. Pedal pulses unchanged. IV removed and appears distal tip is intact. Pt maintains mask on for COVID 19 precautions being taken by wheel chair to awaiting car. Transfers w/o gross distress with discharge paperwork in hand.ds/rn
== END | disposition home or self-care (01) ==
LOC: CATH LAB 06:35
PROVIDERS: ATTEND Internal Medicine Interventional Cardiology
DX: I70.239 Atherosclerosis of native arteries of right leg with ulceration of unspecified site (principal); I70.92 Chronic total occlusion of artery of the extremities; I25.10 Atherosclerotic heart disease of native coronary artery without angina pectoris; Z01.812 Encounter for preprocedural laboratory examination; Z11.59 Encounter for screening for other viral diseases
CPT/HCPCS: 36247; 36415; 37228; 37232; 75625; 75716; 80053; 85025; C1725; J0360; J1644; J2001; J2250; J3010; J7030; Q9967; U0002; 99152; 99153; C1760; C1769; C1887

== ENCOUNTER 2020-07-19 14:38 | Emergency (ER) | payer MEDICARE, OTHER ==
[~2020-07-19] VITALS: Ht 165.1 cm; Wt 58.2 kg
[~2020-07-19 14:38] MED LIST changes: -ASPIRIN 325 MG TAB ONE; -CLOPIDOGREL BISULFATE 75 MG TAB ONE; -FENTANYL CITRATE/PF 100MCG/2 ML INJ ONE; -HEPARIN SOD (PORCINE) 1000 UNIT/ML 30ML ONE; -HEPARIN SOD/SOD CHLORIDE 2,000 ML ONE; -HYDRALAZINE HCL 20 MG/ML VIAL ONE; -IOPAMIDOL 300MG/ML 100 ML INFUS..BTL IV ONE; -KEFLEX500 MG PO; -LIDOCAINE HCL 2% LOCAL 20 ML VIAL ONE; -MIDAZOLAM HCL 2 MG/2 ML VIAL ONE; -NITROGLYCERIN/D5W 200 MCG/ML 250 ML ONE; -PREDNISONE20 MG PO; -SODIUM CHLORIDE 0.9% 1000ML 1,000 ML ONE
--- NOTE | 2020-07-19 16:08 | Diagnostic Imaging Report ---
Chest, 1 view, 07/19/2020. History: Cough. Comparison: None available. Findings: The cardiomediastinal silhouette and pulmonary vasculature are within normal limits for a portable exam. There is no focal consolidation or pleural effusion. Linear opacities are present in the right mid and left lower lobe. Left subclavian dual-lead pacer is present. There are no acute osseous or soft tissue abnormalities. Impression: Bilateral linear atelectasis versus scarring. Signed by: Alexandre Stahl on 07/19/2020 4:05 PM
--- NOTE | 2020-07-19 16:31 | Emergency Department Note ---
History of Present Illnes History of Present Illness Chief Complaint: COVID PUI History of Present Illness This is a 70 year old female Chief Complaint Comment Reports that her son was dx with covid last week and now she is dizzy has a headache, nasal congestion, and a productive cough for the last 3 days with lung pain. Pt states that she also has gangrene in her right foot. . Onset (how long ago): day(s) (2) Location: cough Radiation: Denies non-radiation, Denies back, Denies neck, Denies extremity, Denies abdomen, Denies periumbilical, Denies flank, Denies proximal, Denies distal, Denies other Severity: mild Onset quality: gradual Duration (how long): day(s) (1) Timing of current episode: intermittent Progression: waxing and waning Chronicity: new Context: Denies recent illness, Denies recent surgery, Denies recent immobilization, Denies recent travel, Denies trauma/injury, Denies new medications, Denies hx of DVT/PE, Denies non-compliance w/ medications, Denies other Relieving factors: none Exacerbating factors: none Associated symptoms: Reports cough; Denies denies other symptoms, Denies confusion, Denies chest pain, Denies diaphoresis, Denies fever/chills, Denies headaches, Denies loss of appetite, Denies malaise, Denies nausea/vomiting, Denies rash, Denies seizure, Denies shortness of breath, Denies syncope, Denies weakness, Denies other Treatments prior to arrival: none Past Medical/Family History Physician Review I have reviewed the patient's past medical and family history. Any updates have been documented here. Past Medical History Recent Fever: No Clinical Suspicion of Infectio: No New/Unexplained Change in Ment: No Past Medical History: Hypertension, Diabetes, CHF, Hyperlipedemia Other Medical History: gangrene in left foot Past Surgical History: Cholecysctectomy, Hip Replacement Other Surgery: bilateral ankle surgery left foot surgery Social History Smoking Cessation: Never Smoker Counseling Performed: No Alcohol Use: None Any Illegal Drug Use: No Physically hurt or threatened: No Other Last Tetanus: UNKNOWN Any Pre-Existing Lines (PICC,: No Review of Systems Review of Systems Constitutional: Reports no symptoms, Reports as per HPI EENTM: Reports as per HPI Cardiovascular: Reports no symptoms Respiratory: Reports as per HPI Gastrointestinal: Reports no symptoms Genitourinary: Reports no symptoms; Denies as per HPI, Denies discharge, Denies dysuria, Denies frequency, Denies hematuria, Denies pain, Denies other Musculoskeletal: Reports no symptoms; Denies as per HPI, Denies back pain, Denies gout, Denies joint pain, Denies joint swelling, Denies muscle pain, Denies muscle stiffness, Denies neck pain, Denies other Integumentary: Reports no symptoms; Denies as per HPI, Denies change in color, Denies change in hair/nails, Denies dryness, Denies lesions, Denies lumps, Denies rash, Denies poor turgor, Denies ecchymosis, Denies other Neurological: Reports no symptoms; Denies as per HPI, Denies headache, Denies numbness, Denies paresthesia, Denies pre-existing deficit, Denies seizure, Denies tingling, Denies tremors, Denies weakness, Denies other Psychological: Reports no symptoms; Denies as per HPI, Denies anxiety, Denies depressed, Denies emotional problems, Denies other Endocrine: Reports no symptoms; Denies as per HPI, Denies excessive sweating, Denies flushing, Denies intolerance to cold, Denies intolerance to heat, Denies increased hunger, Denies increased thirst, Denies increased urination, Denies unexplained weight gain, Denies unexplained weight loss, Denies other Hematological/Lymphatic: Reports no symptoms Physical Exam Related Data Allergies: Coded Allergies: No Known Drug Allergies (Verified Allergy, Unknown, 07/31/09) Triage Vital Signs Vital Signs Date Time Temp Pulse Resp B/P (MAP) Pulse Ox O2 Delivery O2 Flow Rate FiO2 07/19/20 14:45 98.9 90 18 154/78 100 Room Air Vital signs reviewed: Yes Physical Exam CONSTITUTIONAL Constitutional: Present well-developed, Present well-nourished HENT HENT: Present normocephalic, Present atraumatic, Present oropharynx clear/moist, Present nose normal HENT L/R: Present left ext ear normal, Present right ext ear normal EYES Eyes: Reports PERRL, Reports conjunctivae normal NECK Neck: Present ROM normal; Absent supple, Absent thyromegaly, Absent tracheal deviation, Absent stridor, Absent JVD, Absent cervical adenopathy, Absent carotid bruit, Absent other PULMONARY Pulmonary: Present effort normal, Present breath sounds normal CARDIOVASCULAR Cardiovascular: Present regular rhythm, Present heart sounds normal, Present capillary refill normal, Present normal rate; Absent irregular rhythm, Absent intact distal pulses, Absent tachycardia, Absent bradycardia, Absent murmur, Absent gallop, Absent friction rub, Absent palpable pulses, Absent strong pulses, Absent weak pulses, Absent LLE edema, Absent RLE edema, Absent other GASTROINTESTINAL Abdominal: Present soft, Present nontender, Present bowel sounds normal; Absent distension, Absent tender, Absent guarding, Absent mass, Absent rebound, Absent hernia, Absent left CVA tenderness, Absent right CVA tenderness, Absent other GENITOURINARY Genitourinary: Present exam deferred; Absent vagina normal, Absent uterus normal, Absent guaiac result, Absent vaginal discharge, Absent other SKIN Skin: Present warm, Present dry MUSCULOSKELETAL Musculoskeletal: Present ROM normal; Absent edema, Absent deformity, Absent tenderness, Absent swelling, Absent other NEUROLOGICAL Neurological: Present alert, Present oriented x 3, Present no gross motor or sensory deficits; Absent DTRs normal, Absent cranial nerve deficit, Absent sensory deficit, Absent abnormal DTRs, Absent abnormal coordination, Absent abnormal gait, Absent weakness, Absent other PSYCHOLOGICAL Psychological: Present mood/affect normal, Present judgement normal Results Laboratory Lab results reviewed: Yes Imaging Imaging results reviewed: Yes Assessment & Plan Medical Decision Making MDM BRONCHITIS COVID Reassessment Reassessment BETTER Assessment & Plan Final Impression: (1) Acute bronchitis Depart Disposition: HOME, SELF-CARE Last Vital Signs Date Time Temp Pulse Resp B/P (MAP) Pulse Ox O2 Delivery O2 Flow Rate FiO2 07/19/20 14:45 98.9 90 18 154/78 100 Room Air Home Meds Reported Medications Metoprolol Succinate (METOPROLOL SUCCINATE) 25 Mg Tab.er.24h, 25 MG PO DAILY 07/11/20 Atorvastatin Calcium (ATORVASTATIN CALCIUM) 20 Mg Tablet, 20 MG PO HS, #30 TAB 06/04/20 Sacubitril/Valsartan (Entresto 24 mg-26 mg Tablet) 1 Each Tablet, 1 TAB PO BID 06/04/20 Ranolazine (RANEXA) 1,000 Mg Tab.er.12h, 500 MG PO BID, TAB 06/04/20 Aspirin (ASPIRIN) 81 Mg Tab.chew 08/23/19 Clopidogrel Bisulfate (CLOPIDOGREL) 75 Mg Tablet, 75 MG PO DAILY, #30 TAB 08/23/19 Insulin Detemir (LEVEMIR) 100 Unit/1 Ml Vial, 9 UNITS SC HS 08/23/19 Insulin Lispro (HUMALOG) 100 Unit/1 Ml Cartridge, 10 UNITS SC BID 08/23/19 SEGUNDO LAZO MD Jul 19, 2020 16:31
[2020-07-19] MEDS ORDERED: PREDNISONE20 MG PO (16:32)
[2020-07-19] MEDS ORDERED: KEFLEX500 MG PO (16:32)
[2020-07-19 16:36] VITALS: BP 168/98
== END 2020-07-19 16:41 | disposition home or self-care (01) ==
LOC: FSED 15:10
DX: J20.9 Acute bronchitis, unspecified (principal); R05 Cough; Z20.828 Contact with and (suspected) exposure to other viral communicable diseases; I10 Essential (primary) hypertension
CPT/HCPCS: 71045; 99283; U0002